=== PATIENT | male | born 1980 | race Caucasian/White ===

== ENCOUNTER 2022-06-09 05:08 | Inpatient (IN) ==
[2022-06-09] MEDS ORDERED: COMPAZINE IVP ONE (05:17)
[2022-06-09] MEDS ORDERED: SODIUM CHLORIDE 1,000 ML IV STA (05:17)
[2022-06-09] MEDS ORDERED: ZOFRAN 4 MG/2 ML IVP ONE (05:17)
[2022-06-09] MEDS ORDERED: DILAUDID 1 MG/ML SYRINGE IVP STA (05:17)
[2022-06-09] MEDS ORDERED: TORADOL IVP STA (05:17)
[2022-06-09 05:33] LABS: BASOPHILS # (AUTO) 0.1 K/uL (0-0.2); BASOPHILS % (AUTO) 0.6 % (0.0-3.0); EOSINOPHILS # (AUTO) 0.2 K/ul (0.0-0.7); EOSINOPHILS % (AUTO) 1.1 % (0.0-7.0); HEMATOCRIT 50.1 % (42.0-52.0); IMMATURE GRANULOCYTE # (AUTO) 0.1 (0.0-1.0); IMMATURE GRANULOCYTE % (AUTO) 0.6 % (0.0-5.0); LYMPHOCYTES # (AUTO) 3.4 K/uL (0.60-3.4); MEAN CORPUSCULAR HEMOGLOBIN 30.2 pg (27.0-31.0); MEAN CORPUSCULAR HGB CONC 33.9 (31.8-35.4); MONOCYTES # (AUTO) 1.6 K/uL (0.4-2.0); MONOCYTES % (AUTO) 8.2 (0-10); NEUTROPHILS # (AUTO) 14.3 K/ul (2.0-6.9); NEUTROPHILS % (AUTO) 72.5 % (42.2-75.2); PLATELET COUNT 357 10^3/uL (140-440); RDW COEFFICIENT OF VARIATION 13.3 % (11.6-14.8); RED BLOOD COUNT 5.63 10^6/ul (4.70-6.10); WHITE BLOOD COUNT 19.76 K/ul (4.2-10.2)
--- NOTE | 2022-06-09 05:40 | ED.PDOC ---
General ED Provider: Dr. JENNIFER VERDUGO Chief Complaint: Nausea/Vomiting Stated Complaint: Patient is a 41 year old male who comes to the ER with acute nausea and vomiting with abdominal pain that started last night. States he has vomited 5-6 times today and cannot keep any fluids down. Time Seen by Provider: 06/09/22 05:17 Mode of Arrival: Walk-In Information Source: Patient Nursing and Triage Documentation Reviewed and Agree: Yes Does patient meet sepsis criteria?: No System Inflammatory Response Syndrome: Not Applicable Sepsis Protocol: For patient's 13 years and over: Temp is 96.8 and below OR 101 and greater Pulse >90 BPM Resp >20/minute Acutely Altered Mental Status Are patient's symptoms suggestive of a new infection, such as: -Pneumonia -Skin, Soft Tissue -Endocarditis -UTI -Bone, Joint Infection -Implantable Device -Acute Abdominal Infection -Wound Infection -Meningitis -Blood Stream Catheter Infection -Unknown GI Complaint Exam Abdominal Pain Complaint/Exam Onset: Gradual Duration: 1 day Symptoms Are: Still present Timing: Constant Initial Severity: Moderate Current Severity: Severe Location of Pain: Diffuse Character: Reports Dull and Aching Aggravating: Reports Food Associated Signs and Symptoms: Reports Nausea and Vomiting Related History: Denies Similar episode Related Surgical History: Denies Cholecystectomy or Appendectomy Abdominal Findings: Present McBurney's Point tender and Other (+ guarding ); Absent Rebound tenderness or CVA Tenderness Male Body Picture: 1. tenderness when palpating Differential Diagnoses: Appendicitis, Bowel Obstruction, Pancreatitis, Renal Colic, Ureteral Stone and UTI Review of Systems Review Of Systems Constitutional: Reports Diaphoresis and Sweats Eyes: Reports No symptoms Ears, Nose, Mouth, Throat: Reports No symptoms Respiratory: Reports No symptoms GI: Reports Abdomen distended, Nausea and Vomiting : Reports No symptoms Musculoskeletal: Reports No symptoms Skin: Reports No symptoms Neurological: Reports Anxiety Endocrine: Reports No symptoms All Other Systems: Reviewed and Negative FOR[facility]LY [facility] Medical History (Updated 06/09/22 @ 07:09 by JENNIFER VERDUGO MD) Anxiety Depression HTN (hypertension) Hyperlipemia PTSD (post-traumatic stress disorder) Family History (Updated 06/09/22 @ 07:10 by JENNIFER VERDUGO MD) Other No pertinent family history Social History (Updated 06/09/22 @ 07:16 by JENNIFER VERDUGO MD) Smoking and tobacco status: Never smoker Details: occasional ETOH Surgical History (Updated 06/09/22 @ 07:15 by JENNIFER VERDUGO MD) H/O shoulder surgery Physical Exam Physical Exam Appearance: Reports Ill-appearing Ill-appearing: Moderate Pain Distress: Severe Eyes: Reports Conjunctiva clear ENT: Reports Nose normal and Oropharynx normal Neck: Supple Respiratory: Reports Airway patent, Breath sounds clear and Breath sounds equal Cardiovascular: Reports RRR, Pulses normal and No rub GI/: Reports Soft and Tender Musculoskeletal: Reports Normal strength and ROM intact Skin: Reports Warm and Dry Neurological: Reports Alert and Oriented Psychiatric: Reports Anxious Interpretation Radiology Interpretation Radiology Interpretation By: Radiologist Radiology Results: Positive (Findings suggestive of gastroenteritis. No evidence of nephrolithiasis or urolithiasis. Normal appendix. No free fluid.) Exam Interpreted: CT Scan Re-Evaluation Re-Evaluation Time of Re-Evaluation: 07:05 Status: Improved Vital Signs Stable: Yes Pain Level: 1 Appearance: NAD Critical Care Note Critical Care Note Total Critical Care Time (mins): 0 Course Course Hematology/Chemistry: 06/09/22 05:30 06/09/22 05:30 Orders, Labs, Meds: Lab Review 06/09/22 06/09/22 06/09/22 05:30 05:30 05:30 WBC 19.76 H RBC 5.63 Hgb 17.0 Hct 50.1 MCV 89.0 MCH 30.2 MCHC 33.9 RDW Coeff of Meli 13.3 Plt Count 357 Immature Gran % (Auto) 0.6 Neut % (Auto) 72.5 Lymph % (Auto) 17.0 [place] % (Auto) 8.2 Eos % (Auto) 1.1 Baso % (Auto) 0.6 Neut # (Auto) 14.3 H Lymph # (Auto) 3.4 [place] # (Auto) 1.6 Eos # (Auto) 0.2 Baso # (Auto) 0.1 Immature Gran # (Auto) 0.1 Sodium 134.1 L Potassium 5.35 H Chloride 94.3 L Carbon Dioxide 27.6 Anion Gap 17.55 BUN 14.8 Creatinine 1.42 H Estimated GFR (MDRD) 55.00 BUN/Creatinine Ratio 10.42 Glucose 122.0 H Lactic Acid 2.85 H Calcium 9.18 Total Bilirubin 1.29 AST 75.2 H ALT 53.9 H Alkaline Phosphatase 91.6 Total Protein 7.80 Albumin 4.56 Globulin 3.24 Albumin/Globulin Ratio 1.40 Amylase 177.1 H Lipase 1193.2 H Orders Category Date Time Status ADMIT PATIENT [facility]PAT[facility]) ADMISSION 06/09/22 06:58 Active ACTIVITY .Up ad Marianela CARE 06/09/22 07:00 Active GIVE HS SNACK 2100 CARE 06/09/22 07:00 Active INTAKE & OUTPUT Q8HR CARE 06/09/22 06:59 Active NPO REMINDER: IMAGING ONCE CARE 06/09/22 07:04 Active NPO REMINDER: LAB TEST ONCE CARE 06/09/22 07:07 Active TELEMETRY MONITORING TELE CARE 06/09/22 06:59 Active VITAL SIGNS Q4HR CARE 06/09/22 06:59 Active CLEAR LIQUID DIET DIETARY 06/09/22 Lunch Ordered HS SNACK DIETARY 06/09/22 Dinner Ordered AMYLASE Stat LAB 06/09/22 05:30 Completed CBC W/ AUTO DIFF DAILY@0600 LAB 06/10/22 06:00 Ordered CBC W/ AUTO DIFF DAILY@0600 LAB 06/11/22 06:00 Ordered CBC W/ AUTO DIFF Stat LAB 06/09/22 05:30 Completed COMPREHENSIVE METABOLIC PANEL DAILY@0600 LAB 06/10/22 06:00 Ordered COMPREHENSIVE METABOLIC PANEL DAILY@0600 LAB 06/11/22 06:00 Ordered COMPREHENSIVE METABOLIC PANEL Stat LAB 06/09/22 05:30 Completed LACTIC ACID Stat LAB 06/09/22 05:30 Completed LIPASE DAILY@0600 LAB 06/10/22 06:00 Ordered LIPASE DAILY@0600 LAB 06/11/22 06:00 Ordered LIPASE Stat LAB 06/09/22 05:30 Completed LIPID PANEL Stat LAB 06/09/22 07:06 Ordered SARS COV-2 RNA RAPID BETITO Stat LAB 06/09/22 06:58 Received URINALYSIS C & S IF INDICATED Stat LAB 06/09/22 05:17 Uncollected Enoxaparin Sodium [Lovenox] MEDS 06/09/22 09:00 Ordered 40 mg SUBCUT DAILY Hydromorphone HCl [Dilaudid 1 mg/ml Syringe] MEDS 06/09/22 05:17 Discontinued 1 mg IVP ONCE STA Hydromorphone HCl [Dilaudid 1 mg/ml Syringe] MEDS 06/09/22 06:58 Ordered 1 mg IVP Q4HR PRN Ketorolac Tromethamine [Toradol] MEDS 06/09/22 05:17 Discontinued 30 mg IVP ONCE STA Lisinopril [Zestril] MEDS 06/09/22 21:00 Ordered 10 mg PO BEDTIME Ondansetron HCl/Pf [Zofran 4 mg/2 ml] MEDS 06/09/22 05:17 Discontinued 4 mg IVP ONCE ONE Ondansetron HCl/Pf [Zofran 4 mg/2 ml] MEDS 06/09/22 06:58 Ordered 4 mg IVP Q6H PRN Prochlorperazine Edisylate [Compazine] MEDS 06/09/22 05:17 Discontinued 10 mg IVP ONCE ONE Sodium Chloride 0.9% [Sodium Chloride] 1,000 ml MEDS 06/09/22 07:00 Ordered IV 150 mls/hr Sodium Chloride 0.9% [Sodium Chloride] 1,000 ml MEDS 06/09/22 05:17 Discontinued IV BOLUS RESUSCITATION STATUS Routine OTHERS 06/09/22 06:[address] ABD/PEL WO RENAL STONE PROT Stat RADS 06/09/22 05:17 Completed GALLBLADDER ULTRASOUND [U/S ABDOMEN RT UPPER QUAD] Stat RADS 06/09/22 07:03 Ordered Medications Generic Name Dose Route Start Last Admin Trade Name Freq PRN Reason Stop Dose Admin Enoxaparin Sodium 40 mg 06/09/22 09:00 Enoxaparin Sodium 40 Mg/0.4 Ml Syr SUBCUT DAILY RAH Hydromorphone HCl 1 mg 06/09/22 06:58 Hydromorphone Hcl 1 Mg/Ml Syringe IVP Q4HR PRN Severe Pain Sodium Chloride 1,000 mls @ 150 mls/hr 06/09/22 07:00 Sodium Chloride IV .Q6H40M RAH Lisinopril 10 mg 06/09/22 21:00 Lisinopril 10 Mg Tablet PO BEDTIME RAH Ondansetron HCl 4 mg 06/09/22 06:58 Ondansetron Hcl/Pf 4 Mg/2 Ml Sdv IVP Q6H PRN Nausea / Vomiting Discontinued Medications Generic Name Dose Route Start Last Admin Trade Name Freq PRN Reason Stop Dose Admin Hydromorphone HCl 1 mg 06/09/22 05:17 06/09/22 05:35 Hydromorphone Hcl 1 Mg/Ml Syringe IVP 06/09/22 05:18 1 mg ONCE STA Administration Sodium Chloride 1,000 mls @ 1,000 mls/hr 06/09/22 05:17 06/09/22 05:36 Sodium Chloride IV 06/09/22 06:16 1,000 mls/hr BOLUS STA Administration Ketorolac Tromethamine 30 mg 06/09/22 05:17 06/09/22 05:35 Ketorolac Tromethamine 30 Mg/Ml Vial IVP 06/09/22 05:18 30 mg ONCE STA Administration Ondansetron HCl 4 mg 06/09/22 05:17 06/09/22 05:35 Ondansetron Hcl/Pf 4 Mg/2 Ml Sdv IVP 06/09/22 05:18 4 mg ONCE ONE Administration Prochlorperazine Edisylate 10 mg 06/09/22 05:17 06/09/22 05:49 Prochlorperazine Edisylate 10 Mg/2 Ml Sdv IVP 06/09/22 05:18 10 mg ONCE ONE Administration Vital Signs: Temp Pulse Resp BP Pulse Ox 06/09/22 05:09 98.0 F 90 90 H 127/88 99 Discharge Plan Discharge Patient Disposition: ADMITTED INPATIENT Discharge Problem: Gastroenteritis, Nausea, Vomiting, Abdominal pain Acute pancreatitis Qualifiers: Pancreatitis type: idiopathic Acute pancreatitis complication: no infection or necrosis Qualified Code(s): K85.00 - Idiopathic acute pancreatitis without necrosis or infection Did you review [place] BOTANY PROFESSOR?: Not Applicable ED Provider: JENNIFER VERDUGO Condition: Stable Physician Progress Note: []
[2022-06-09 05:45] LABS: ALANINE AMINOTRANSFERASE 53.9 U/L (0-50); ALBUMIN 4.56 g/dL (3.5-5.0); ALKALINE PHOSPHATASE 91.6 U/L (38-126); AMYLASE 177.1 U/L (30-110); ASPARTATE AMINO TRANSFERASE 75.2 U/L (17-59); BILIRUBIN,TOTAL 1.29 mg/dL (0.2-1.3); BLOOD UREA NITROGEN 14.8 mg/dL (9-20); CALCIUM 9.18 mg/dL (8.4-10.2); CARBON DIOXIDE 27.6 mmol/L (22-30.0); CHLORIDE 94.3 mmol/L (98-107); CREATININE 1.42 mg/dL (0.60-1.10); LIPASE 1193.2 U/L (23-300); POTASSIUM 5.35 mmol/L (3.5-5.1); SODIUM 134.1 mmol/L (134.5-145); TOTAL PROTEIN 7.8 g/dL (6.3-8.2)
--- NOTE | 2022-06-09 06:28 | CT ---
EXAM: CT scan abdomen pelvis without contrast HISTORY: Low back pain vomiting COMPARISON: None. FINDINGS: Helically acquired axial images obtained through the abdomen pelvis without contrast utili zing 2.5-mm collimation. Sagittal and coronal reconstructions were imaged and reviewed.. The visual ized lung bases are clear. The gallbladder is fluid filled without cholelithiasis. The liver, pancr eas, spleen and adrenal glands have normal unenhanced CT appearance. The kidneys are morphologically normal.. The abdominal aorta is not normal in course and caliber. There is a normal appendix. The prostate gland normal in size. The bladder is unremarkable.. There are prominent thickened small b owel loops within the left abdomen suggesting gastroenteritis.. There is a fat-containing umbilical hernia. There is no free fluid. Bone windows reveals no lytic or blastic lesions. IMPRESSION: Findings suggestive of gastroenteritis. No evidence of nephrolithiasis or urolithiasis. Normal appendix. No free fluid. All CT scans are performed using dose optimization techniques as appropriate to the performed exam an d include at least one of the following: Automated exposure control, adjustment of the mA and/or kV according t o size, and the use of iterative reconstruction technique.
[2022-06-09] MEDS: SODIUM CHLORIDE 1,000 ML IV SCH ×3 (07:26→23:12)
[2022-06-09 07:33] LABS: CHOLESTEROL 220.4 mg/dL (0-200); HDL CHOLESTEROL 12.5 mg/dL (35-60); TRIGLYCERIDES 183.8 mg/dL (0-150)
--- NOTE | 2022-06-09 08:03 | US ---
EXAM: ULTRASOUND OF THE RIGHT UPPER QUADRANT (LIMITED ABDOMEN) HISTORY: Pancreatitis. Abdominal pain, nausea, and vomiting for 1 day. TECHNIQUE: Sonography of the right upper quadrant was performed. Color Doppler imaging of the portal vein was performed. Images were obtained and stored in a permanent archive. COMPARISON: CT abdomen pelvis 06/09/2022. FINDINGS: Pancreas: Obscured by bowel gas shadowing. Liver: Normal echogenicity. Normal surface contour. No lesions. - Main portal vein: Normal hepatopetal flow. Biliary: No cholelithiasis. No wall thickening. Negative sonographic Lake's sign. -Common bile duct measures 4 mm. Right Kidney: No mass, calculus, or hydronephrosis. Aorta: Visualized portion without aneurysmal dilatation. IVC: Patent on color doppler. No abnormality on limited ureña scale image. Other: No ascites. IMPRESSION: Pancreas obscured by bowel gas shadowing, could not be evaluated. No acute finding in the right upper quadrant.
--- NOTE | 2022-06-09 08:23 | PCM.PROG ---
Date Seen by Provider: 06/09/22 Time Seen by Provider: 08:19 Subjective: Pt presented with epigastric abdominal pain and found to have pancreatitis. Admitted for pain control and to assure improvement in his symptoms. Currently still with pain as he was just admitted a few hours ago. Objective: Vitals: T=98.0 F, P=90, R=22, EX=873/88, SPO2=99 HEENT: PERRL Neck: supple Lungs: clear CVS: RRR Abdomen: epigastric TTP Neurological: intact Lab/Tests/Diagnostic Imaging: AST 75, ALT 54, Lipase 1193, Trig 183, Chol 220, covid neg, US shows no acute findings with the pancreas obscured (1) Acute pancreatitis: Status: Acute Code(s): K85.90 - Acute pancreatitis without necrosis or infection, unspecified SNOMED Code(s): 420442511 (2) Vomiting: Status: Acute Code(s): R11.10 - Vomiting, unspecified SNOMED Code(s): 935623794 Plan: 1. Pancreatitis: Continue pain medication and keep diet as clears today. If improving can advance diet tomorrow. 2. N/V: Fluids and antiemetics as needed
[2022-06-09 08:53] VITALS: BMI 42.9
[2022-06-09] MEDS: DILAUDID 1 MG/ML SYRINGE IVP PRN ×4 (09:03→20:35)
[2022-06-09 09:36] LABS: BILIRUBIN,URINE 1+ (NEGATIVE); CLARITY,URINE Clear (CLEAR); COLOR,URINE Yellow (YELLOW); GLUCOSE, URINE (UA) Negative (NEGATIVE); KETONES,URINE 1+ (NEGATIVE); LEUKOCYTE ESTERASE ,URINE Negative (NEGATIVE); NITRITE,URINE Positive (NEGATIVE); PROTEIN,URINE 1+ (NEGATIVE); URINE, BLOOD Negative (NEGATIVE)
[2022-06-09 09:39] LABS: SQUAMOUS EPITHELIAL CELL,UR NOT PRESENT (0-5)
[2022-06-09 09:47] LABS: BACTERIA,URINE 1+ (NOT PRESENT); MUCUS,URINE 2+ (NOT PRESENT); RENAL EPITHELIAL CELLS,URINE 0-2 (NOT PRESENT); URINE RBC, MICROSCOPIC 20-30 (0-2)
[2022-06-09] MEDS: PHENERGAN 25 MG/ML VIAL 12.5 MG in SODIUM CHLORIDE 50 ML IV PRN ×2 (11:12→17:11)
[2022-06-09] MEDS: ZOFRAN 4 MG/2 ML IVP PRN ×2 (13:25→15:08)
[2022-06-09] MEDS: LOVENOX SUBCUT SCH (15:56)
[2022-06-09] MEDS ORDERED: CATAPRES PO PRN (16:24)
[2022-06-09] MEDS ORDERED: INDERAL PO PRN (16:24)
[2022-06-09] MEDS ORDERED: PHENERGAN 25 MG/ML VIAL ONE (17:00)
[2022-06-09] MEDS: ZANAFLEX PO SCH (20:30)
[2022-06-09] MEDS: LIPITOR PO SCH (20:30)
[2022-06-09] MEDS: ZESTRIL PO SCH (20:30)
[2022-06-10] MEDS: DILAUDID 1 MG/ML SYRINGE IVP PRN ×6 (02:50→22:57)
[2022-06-10 05:51] LABS: BASOPHILS # (AUTO) 0.1 K/uL (0-0.2); BASOPHILS % (AUTO) 0.4 % (0.0-3.0); EOSINOPHILS # (AUTO) 0.2 K/ul (0.0-0.7); HEMATOCRIT 48.1 % (42.0-52.0); IMMATURE GRANULOCYTE # (AUTO) 0.1 (0.0-1.0); IMMATURE GRANULOCYTE % (AUTO) 0.4 % (0.0-5.0); LYMPHOCYTES # (AUTO) 2.4 K/uL (0.60-3.4); LYMPHOCYTES % (AUTO) 12.5 (10.0-50.0); MEAN CORPUSCULAR HGB CONC 33.3 (31.8-35.4); MEAN CORPUSCULAR VOLUME 90.2 fl (80.0-94.0); MONOCYTES % (AUTO) 10.7 (0-10); PLATELET COUNT 288 10^3/uL (140-440); RDW COEFFICIENT OF VARIATION 13.3 % (11.6-14.8); RED BLOOD COUNT 5.33 10^6/ul (4.70-6.10); WHITE BLOOD COUNT 18.74 K/ul (4.2-10.2)
[2022-06-10] MEDS: SODIUM CHLORIDE 1,000 ML IV SCH ×3 (05:59→20:21)
[2022-06-10 06:08] LABS: ALANINE AMINOTRANSFERASE 39.9 U/L (0-50); ALBUMIN 3.97 g/dL (3.5-5.0); ALKALINE PHOSPHATASE 66.3 U/L (38-126); ASPARTATE AMINO TRANSFERASE 54.5 U/L (17-59); BILIRUBIN,TOTAL 1.81 mg/dL (0.2-1.3); BLOOD UREA NITROGEN 11.1 mg/dL (9-20); CALCIUM 8.39 mg/dL (8.4-10.2); CARBON DIOXIDE 29.4 mmol/L (22-30.0); CHLORIDE 95.5 mmol/L (98-107); CREATININE 1.29 mg/dL (0.60-1.10); GLUCOSE 103.6 mg/dL (74-106); LIPASE 764.8 U/L (23-300); POTASSIUM 5.16 mmol/L (3.5-5.1); SODIUM 132.6 mmol/L (134.5-145); TOTAL PROTEIN 7.02 g/dL (6.3-8.2)
[2022-06-10] MEDS: LOVENOX SUBCUT SCH (08:26)
--- NOTE | 2022-06-10 09:01 | PCM.PROG ---
Date Seen by Provider: 06/10/22 Time Seen by Provider: 08:57 Subjective: "im still hurting"--still requiring pain meds--no new concerns by nursing staff Objective: Vitals: T=98.5 F, P=72, R=18, KB=839/91, SPO2=96 HEENT: [] Neck: [supple] Lungs: [clear] CVS: [rrr] Abdomen: [soft, bs] Extremities: [no edema] Neurological: [] Skin: [] Lab/Tests/Diagnostic Imaging: labs are reviewed---lipase is improved to the 700's range (1) Acute pancreatitis: Status: Acute Code(s): K85.90 - Acute pancreatitis without necrosis or infection, unspecified SNOMED Code(s): 940183520 (2) Vomiting: Status: Acute Code(s): R11.10 - Vomiting, unspecified SNOMED Code(s): 537948075 Assessment: he appears to be a little better--tolerating clear liquids without vomiting--- Plan: will try to advance his diet to low fat diet today and check labs in am--discussed with the patient and --since no clear etiology for the problem--i suggested seeing mud mixer operator as outpatient to discover etiology
[2022-06-10] MEDS ORDERED: PHENERGAN 25 MG/ML VIAL ONE ×2 (13:16→22:42)
[2022-06-10] MEDS: PHENERGAN 25 MG/ML VIAL 12.5 MG in SODIUM CHLORIDE 50 ML IV PRN ×2 (13:21→22:56)
[2022-06-10] MEDS: ZANAFLEX PO SCH (20:48)
[2022-06-10] MEDS: LIPITOR PO SCH (20:48)
[2022-06-10] MEDS: ZESTRIL PO SCH (20:48)
[2022-06-11] MEDS: ZOFRAN 4 MG/2 ML IVP PRN ×2 (03:36→09:09)
[2022-06-11] MEDS: SODIUM CHLORIDE 1,000 ML IV SCH ×3 (03:52→19:44)
[2022-06-11 05:01] LABS: BASOPHILS # (AUTO) 0.1 K/uL (0-0.2); BASOPHILS % (AUTO) 0.4 % (0.0-3.0); EOSINOPHILS # (AUTO) 0.1 K/ul (0.0-0.7); EOSINOPHILS % (AUTO) 0.6 % (0.0-7.0); HEMATOCRIT 43.9 % (42.0-52.0); HEMOGLOBIN 14.7 g/dl (14.0-18.0); IMMATURE GRANULOCYTE # (AUTO) 0.1 (0.0-1.0); IMMATURE GRANULOCYTE % (AUTO) 0.5 % (0.0-5.0); LYMPHOCYTES # (AUTO) 1.1 K/uL (0.60-3.4); LYMPHOCYTES % (AUTO) 6.3 (10.0-50.0); MEAN CORPUSCULAR HEMOGLOBIN 30.2 pg (27.0-31.0); MEAN CORPUSCULAR HGB CONC 33.5 (31.8-35.4); MEAN CORPUSCULAR VOLUME 90.3 fl (80.0-94.0); NEUTROPHILS # (AUTO) 13.7 K/ul (2.0-6.9); NEUTROPHILS % (AUTO) 80.2 % (42.2-75.2); PLATELET COUNT 235 10^3/uL (140-440); RDW COEFFICIENT OF VARIATION 13.4 % (11.6-14.8); RED BLOOD COUNT 4.86 10^6/ul (4.70-6.10); WHITE BLOOD COUNT 17.03 K/ul (4.2-10.2)
[2022-06-11 05:12] LABS: ALANINE AMINOTRANSFERASE 31.5 U/L (0-50); ALBUMIN 3.65 g/dL (3.5-5.0); ALKALINE PHOSPHATASE 56.7 U/L (38-126); ASPARTATE AMINO TRANSFERASE 40.6 U/L (17-59); BILIRUBIN,TOTAL 1.04 mg/dL (0.2-1.3); BLOOD UREA NITROGEN 13.4 mg/dL (9-20); CALCIUM 8.19 mg/dL (8.4-10.2); CARBON DIOXIDE 24.7 mmol/L (22-30.0); CHLORIDE 98.5 mmol/L (98-107); CREATININE 2.69 mg/dL (0.60-1.10); GLUCOSE 106.7 mg/dL (74-106); LIPASE 566.8 U/L (23-300); POTASSIUM 4.85 mmol/L (3.5-5.1); SODIUM 132.2 mmol/L (134.5-145); TOTAL PROTEIN 6.69 g/dL (6.3-8.2)
[2022-06-11] MEDS ORDERED: MIRALAX PO ONE (08:30)
[2022-06-11] MEDS: LOVENOX SUBCUT SCH (08:39)
[2022-06-11] MEDS: DILAUDID 1 MG/ML SYRINGE IVP PRN ×3 (08:48→20:45)
[2022-06-11] MEDS ORDERED: PHENERGAN 25 MG/ML VIAL ONE ×2 (11:29→19:57)
[2022-06-11] MEDS: PHENERGAN 25 MG/ML VIAL 12.5 MG in SODIUM CHLORIDE 50 ML IV PRN (11:32)
[2022-06-11] MEDS ORDERED: PHENERGAN 25 MG/ML VIAL 12.5 MG in SODIUM CHLORIDE 50 ML IV PRN (11:45)
[2022-06-11] MEDS ORDERED: LEVAQUIN 500 MG/100 ML D5W 500 MG/100 ML BAG IV SCH (12:00)
--- NOTE | 2022-06-11 12:26 | PCM.PROG ---
Date Seen by Provider: 06/11/22 Time Seen by Provider: 12:21 Subjective: mild to mod abdominal pain continues, especially after advancing diet last night, decreased stooling, no fever Objective: Vitals: T=99.5 F, P=81, R=16, DX=213/64, SPO2=96 HEENT: []conjunctiva clear Neck: []supple Lungs: [] no respiratory distress CVS: []RRR Abdomen: []soft tender, no rebound Extremities: []enriqueta Neurological: []alert and oriented Skin: []warm and dry Lab/Tests/Diagnostic Imaging: [] stranner 2.6, lipase 566, wbc 17 (1) Acute pancreatitis: Status: Acute Code(s): K85.90 - Acute pancreatitis without necrosis or infection, unspecified SNOMED Code(s): 445113313 (2) Vomiting: Status: Acute Code(s): R11.10 - Vomiting, unspecified SNOMED Code(s): 925324722 Plan: give miralax, continue iv ns 150cc/hr, obtain repeat ct abd to evaluate potential enteritis, am labs, start levaquin, attempt to decrease interval phenergan and dilaudid, attempt to d/c home tomorrow care to Dr Treviño at 19:00
--- NOTE | 2022-06-11 13:17 | CT ---
EXAM: CT ABDOMEN AND PELVIS WITHOUT CONTRAST HISTORY: Abdominal pain. Follow-up. TECHNIQUE: CT acquisition of the abdomen and pelvis from the lower thorax through the pelvis without IV contrast administration. IV contrast: None. Oral contrast: None. Low dose protocol: No. CT Dose Reduction Techniques Performed: Yes. COMPARISON: CT abdomen pelvis and right upper quadrant ultrasound 06/09/2022 FINDINGS: Liver: No mass. Normal morphology. Biliary: No biliary ductal dilation. Gallbladder is normal. Pancreas: Mild peripancreatic inflammatory changes. No duct dilation. No significant parenchymal ed patricia or enlargement. Spleen: No mass. No splenomegaly. Adrenals: No mass. Kidneys/Ureters: No mass, calculus, or hydronephrosis. GI Tract: No bowel dilation. No bowel wall thickening. Normal appendix. No diverticulosis. Peritoneal Cavity: No ascites. Retroperitoneum: No fluid collection. Lymph Nodes: No lymphadenopathy. Vasculature: No aortic calcifications. No aortic or iliac aneurysm within limitations of noncontrast examination. Pelvis: Urinary bladder is normal. No free fluid. Bones/Soft Tissues: No acute fracture. Left L5 pars defect. Visualized soft tissues are within brian l limits. Lower Thorax: Within normal limits. IMPRESSION: Mild peripancreatic inflammatory changes concerning for acute interstitial edematous pancreatitis. C orrelation with amylase and lipase levels is recommended. All CT scans are performed using dose optimization techniques as appropriate to the performed exam an d include at least one of the following: Automated exposure control, adjustment of the mA and/or kV according t o size, and the use of iterative reconstruction technique.
[2022-06-11] MEDS ORDERED: MILK OF MAGNESIA PO STA (15:03)
[2022-06-11] MEDS ORDERED: MILK OF MAGNESIA PO PRN (15:03)
[2022-06-11] MEDS: LIPITOR PO SCH (20:14)
[2022-06-11] MEDS: ZANAFLEX PO SCH (20:14)
[2022-06-11] MEDS: ZESTRIL PO SCH (20:15)
[2022-06-12] MEDS: SODIUM CHLORIDE 1,000 ML IV SCH ×2 (01:20→09:00)
[2022-06-12 05:24] LABS: BASOPHILS # (AUTO) 0.1 K/uL (0-0.2); BASOPHILS % (AUTO) 0.4 % (0.0-3.0); EOSINOPHILS # (AUTO) 0.2 K/ul (0.0-0.7); EOSINOPHILS % (AUTO) 1.7 % (0.0-7.0); HEMATOCRIT 42.1 % (42.0-52.0); HEMOGLOBIN 14.1 g/dl (14.0-18.0); IMMATURE GRANULOCYTE # (AUTO) 0.1 (0.0-1.0); IMMATURE GRANULOCYTE % (AUTO) 0.5 % (0.0-5.0); LYMPHOCYTES # (AUTO) 2.2 K/uL (0.60-3.4); LYMPHOCYTES % (AUTO) 18.5 (10.0-50.0); MEAN CORPUSCULAR HEMOGLOBIN 30.1 pg (27.0-31.0); MEAN CORPUSCULAR HGB CONC 33.5 (31.8-35.4); MEAN CORPUSCULAR VOLUME 89.8 fl (80.0-94.0); MONOCYTES # (AUTO) 1.4 K/uL (0.4-2.0); MONOCYTES % (AUTO) 11.9 (0-10); NEUTROPHILS # (AUTO) 8.1 K/ul (2.0-6.9); PLATELET COUNT 244 10^3/uL (140-440); RDW COEFFICIENT OF VARIATION 13.3 % (11.6-14.8); RED BLOOD COUNT 4.69 10^6/ul (4.70-6.10); WHITE BLOOD COUNT 12.06 K/ul (4.2-10.2)
[2022-06-12 05:37] LABS: ALANINE AMINOTRANSFERASE 26.6 U/L (0-50); ALBUMIN 3.43 g/dL (3.5-5.0); ALKALINE PHOSPHATASE 51.1 U/L (38-126); ASPARTATE AMINO TRANSFERASE 40.4 U/L (17-59); BILIRUBIN,TOTAL 1.04 mg/dL (0.2-1.3); BLOOD UREA NITROGEN 13.3 mg/dL (9-20); CALCIUM 8.62 mg/dL (8.4-10.2); CARBON DIOXIDE 32.9 mmol/L (22-30.0); CHLORIDE 97.2 mmol/L (98-107); CREATININE 1.42 mg/dL (0.60-1.10); GLUCOSE 94.7 mg/dL (74-106); LIPASE 281.6 U/L (23-300); POTASSIUM 4.75 mmol/L (3.5-5.1); SODIUM 135.8 mmol/L (134.5-145); TOTAL PROTEIN 6.51 g/dL (6.3-8.2)
[2022-06-12 07:21] VITALS: BP 153/89; TEMP 97.9
[2022-06-12] MEDS: LOVENOX SUBCUT SCH (09:00)
--- NOTE | 2022-06-12 09:15 | PCM.PROG ---
Date Seen by Provider: 06/12/22 Time Seen by Provider: 07:45 Subjective: Patient denies abdominal pain or nausea. He is tolerating diet. Last bowel movement was 4 days ago. He is passing flatus. Objective: Vitals: T=97.9 F, P=78, R=18, IA=272/89, SPO2=96 Patient is alert and appears to be comfortable. HEENT: [] Neck: [] Lungs: [] Chest clear. Breath tones equal. CVS: [] RRR Abdomen: [] Abdomen is flat, soft and nontender. No palpable mass. Extremities: [] No edema. Neurological: [] No deficits. Skin: [] Lab/Tests/Diagnostic Imaging: [] (1) Acute pancreatitis: Status: Acute Code(s): K85.90 - Acute pancreatitis without necrosis or infection, unspecified SNOMED Code(s): 134884463 Assessment: Etiology of pancreatitis remains unclear; patient denies alcohol use. No gallstones or sludge on gallbladder ultrasound. No other obvious cause of pancreatitis. (2) Vomiting: Status: Acute Code(s): R11.10 - Vomiting, unspecified SNOMED Code(s): 326240693 Assessment: Vomiting has resolved and patient is tolerating diet. Plan: Patient to be discharged to home today.
--- NOTE | 2022-06-12 09:18 | PCM.DC ---
Final Diagnosis: acute pancreatitis of uncertain etiology Physical Exam Appearance: Well-appearing, No pain distress and Well-nourished Ill-appearing: None Pain Distress: None Eyes: ELOY and EOMI ENT: Nose normal and Oropharynx normal Neck: Supple Respiratory: Airway patent, Breath sounds clear and Breath sounds equal Cardiovascular: RRR, No rub and No murmur GI/: Soft, Nontender, No masses and Bowel sounds normal Musculoskeletal: Normal strength, ROM intact and No edema Skin: Warm, Dry and Normal color Neurological: Sensation intact, Motor intact, Cranial nerves intact, Alert and Oriented Psychiatric: Affect appropriate and Mood appropriate (1) Acute pancreatitis: Status: Acute Code(s): K85.90 - Acute pancreatitis without necrosis or infection, unspecified SNOMED Code(s): 427021166 Qualifiers: Acute pancreatitis complication: no infection or necrosis Pancreatitis type: idiopathic Qualified Code(s): K85.00 - Idiopathic acute pancreatitis without necrosis or infection (2) Vomiting: Status: Acute Code(s): R11.10 - Vomiting, unspecified SNOMED Code(s): 722952635 Reason for Hospitalization: Patient admitted with acute pancreatitis. He was made NPO and received IV fluid hydration. His pancreatitis eventually resolved and patient was started on a low fat diet. He tolerated this well. CT scan of the abd/pelvis and gallbladder ultrasound were remarkable only for findings of acute gastroenteritis and acute pancreatitis. Prognosis/Condition at Discharge: Condition at discharge was good. Medications at Discharge: Patient was discharged on the same home medications that he was taking at the time of discharge. Lab/Diagnostics: Lipase was normalizing at the time of discharge. Creatinine was noted to be elevated but was trending downward at the time of discharge. Education Provided to Patient and Family: acute pancreatitis Follow-ups: Follow up with your primary care provider within 7-10 days. Discharge Disposition: Home Hospital Course: Patient was admitted with acute pancreatitis. Etiology of the pancreatitis could not be established. He was kept NPO until his abdominal pain and nausea had resolved. Diet was then started and advanced to a low fat diet. His IV fluids were discontinued when his oral intake was adequate. He received antiemetics and narcotics as needed. Plan: Patient was discharged to home. He is to follow up with his primary care provider within 7-10 days. Maintain a low fat diet.
== END 2022-06-12 09:58 | disposition home or self-care (01) | DRG 440 ==
LOC: ED 05:08 → MEDSURG A 07:41
PROVIDERS: ADMIT Internal Medicine Geriatric Medicine; ATTEND Surgery
DX: Z51.81 Encounter for therapeutic drug level monitoring; K85.90 Acute pancreatitis without necrosis or infection, unspecified; K85.00 Idiopathic acute pancreatitis without necrosis or infection; R11.10 Vomiting, unspecified; Z20.822 Contact with and (suspected) exposure to COVID-19; E78.5 Hyperlipidemia, unspecified; K52.9 Noninfective gastroenteritis and colitis, unspecified; I10 Essential (primary) hypertension; Z79.899 Other long term (current) drug therapy

== ENCOUNTER 2023-01-30 15:38 | Observation (INO) ==
[2023-01-30] MEDS ORDERED: ZOFRAN 4 MG/2 ML IVP STA (16:08)
[2023-01-30] MEDS ORDERED: MORPHINE 4 MG/ML SYRINGE IVP STA (16:08)
--- NOTE | 2023-01-30 16:08 | ED.PDOC ---
General ED Provider: Dr. EZE NAIDU MD Chief Complaint: Nausea/Vomiting Stated Complaint: PATIENT WITH A 2 WEEK HISTORY OF URGENCY,DYSURIA, HESITANCY EVALUATED IN EMERGENCY ON 01/26/23 FOR ACUTE URINARY RETENTION. NOW PRESENTS TO EMERGENCY WITH COMPLAINTS OF SUPRAPUBIC ABDOMINAL PAIN, AND EMESIS X 10 TODAY. DENIES FEVER, CHILLS FLANK PAIN OR DIARRHEA. TREATED WITH ANTIBIOTIC X 4 DAYS AND MEDROL DOSEPAK OR 4 DAYS. Time Seen by Provider: 01/30/23 16:00 Information Source: Patient Exam Limitations: Clinical condition Primary Care Provider: LEE NOEL APRN Seen Within Last 72 Hours for Same Complaint By: ED Nursing and Triage Documentation Reviewed and Agree: Yes Does patient meet sepsis criteria?: No System Inflammatory Response Syndrome: Not Applicable Sepsis Protocol: For patient's 13 years and over: Temp is 96.8 and below OR 101 and greater Pulse >90 BPM Resp >20/minute Acutely Altered Mental Status Are patient's symptoms suggestive of a new infection, such as: -Pneumonia -Skin, Soft Tissue -Endocarditis -UTI -Bone, Joint Infection -Implantable Device -Acute Abdominal Infection -Wound Infection -Meningitis -Blood Stream Catheter Infection -Unknown Complaint Exam Complaint/Exam Onset/Duration: 2 WEEKS DIFFICULTY VOIDING Symptoms Are: Still present Timing: Constant Episodes of Voiding Over Last 12 Hours: 3 Location of Pain: Reports Suprapubic Character: Reports Sharp Aggravating: Reports Voiding Associated Signs and Symptoms: Reports Dysuria; Denies Diaphoresis, Back pain, Fever, Hematuria, Constipation, Penile swelling or Penile discharge Last Voided: PRIOR TO ARRIVAL Testicular Torsion Risk Factors: Reports None Surgical Obstruction Risk Factors: Reports None Related Surgical History: Reports None Abdominal Findings: Present None; Absent Pulsatile mass or CVA Tenderness Rectal Exam: Present Normal Findings Prostate Exam: Nontender Review of Systems Review Of Systems Constitutional: Reports No symptoms All Other Systems: Reviewed and Negative FORMERLY [facility] Medical History Family History Other No pertinent family history Social History Smoking and tobacco status: Never smoker Details: occasional ETOH Surgical History Physical Exam Physical Exam Appearance: Reports Well-appearing Ill-appearing: Mild Pain Distress: Moderate Eyes: Reports ELOY and Conjunctiva clear; Denies Conjunctiva inflammed ENT: Reports Ears normal, Nose normal and Oropharynx normal; Denies TMs Occluded Neck: Supple Respiratory: Reports Airway patent, Breath sounds clear and Breath sounds equal; Denies Breath sounds diminished Cardiovascular: Reports RRR, Pulses normal, No rub and No murmur GI/: Reports Bowel sounds normal and Tender (SUPRAPUBIC TENDERNESS MODERATE); Denies Hepatomegaly Musculoskeletal: Denies ROM intact Skin: Reports Dry and Normal color Neurological: Reports Sensation intact, Motor intact and Cranial nerves intact Psychiatric: Reports Affect appropriate and Mood appropriate Re-Evaluation Re-Evaluation Time of Re-Evaluation: 18:30 Pain Level: PAIN SCALE IMPROVED 10/10 TO 4/10 Appearance: NAD Lungs: Clear Skin: Warm and Dry Neuro: Alert and Oriented X3 CV: RRR Physician Notification Case Discussed Physician Notified: CONSULTED HOSPITALIST SHANNON Time of Notification: 18:14 Comments: FOR OBSERVATION Critical Care Note Critical Care Note Total Critical Care Time (mins): 0 Course Course 01/30/23 16:20 01/30/23 16:20 Orders, Labs, Meds: Lab Review 01/30/23 01/30/23 01/30/23 16:20 17:18 17:20 WBC 31.71 H D RBC 5.94 Hgb 18.0 Hct 52.9 H MCV 89.1 MCH 30.3 MCHC 34.0 RDW Coeff of Meli 12.6 Plt Count 431 Immature Gran % (Auto) 0.8 Neut % (Auto) 79.1 H Lymph % (Auto) 9.9 L Davison % (Auto) 9.4 Eos % (Auto) 0.3 Baso % (Auto) 0.5 Neut # (Auto) 25.1 H Lymph # (Auto) 3.2 Davison # (Auto) 3.0 H Eos # (Auto) 0.1 Baso # (Auto) 0.2 Immature Gran # (Auto) 0.2 Sodium 132.7 L Potassium 4.02 Chloride 94.6 L Carbon Dioxide 21.2 L Anion Gap 20.92 BUN 22.1 H Creatinine 1.31 H Estimated GFR (MDRD) 60.00 BUN/Creatinine Ratio 16.87 Glucose 131.0 H Lactic Acid 1.96 Calcium 9.55 Total Bilirubin 2.06 H AST 54.9 ALT 56.9 H Alkaline Phosphatase 85.7 Total Protein 8.03 Albumin 4.75 Globulin 3.28 Albumin/Globulin Ratio 1.44 Lipase 1082.4 H Urine Color Dark Urine Clarity Clear Urine pH >=9.0 Ur Specific [place] 1.010 Urine Protein 2+ H Urine Glucose (UA) Negative Urine Ketones 2+ H Urine Blood Negative Urine Nitrite Negative Urine Bilirubin Negative Urine Urobilinogen 1.0 H Ur Leukocyte Esterase Negative Urine Microscopic RBC 0-2 Urine Microscopic WBC 0-2 Ur Squamous Epith Cells Not present Urine Mucus Trace Urine Opiates Screen Positive H Ur Oxycodone Screen Negative Urine Methadone Screen Negative Ur Propoxyphene Screen Negative Ur Barbiturates Screen Negative U Tricyclic Antidepress Negative Ur Phencyclidine Scrn Negative Ur Amphetamine Screen Negative U Methamphetamines Scrn Negative U Benzodiazepines Scrn Negative Urine Cocaine Screen Negative U Cannabinoids Screen Positive H Orders Category Date Time Status NPO REMINDER: IMAGING ONCE CARE 01/30/23 16:09 Completed IV [ED IV/MEDIPORT/POWERPORT] .ONCE EMERGENCY 01/30/23 16:10 Active BLOOD CULTURE (ED ONLY) Stat LAB 01/30/23 17:20 Received CBC W/ AUTO DIFF Stat LAB 01/30/23 16:20 Completed CMP [COMPREHENSIVE METABOLIC PANEL] Stat LAB 01/30/23 16:20 Completed DRUG SCREEN, URINE, RAPID Stat LAB 01/30/23 17:18 Completed LACTIC ACID Stat LAB 01/30/23 17:20 Completed LIPASE Routine LAB 01/30/23 16:20 Completed SARS COV-2 RNA RAPID BETITO Stat LAB 01/30/23 Ordered URINALYSIS C & S IF INDICATED Stat LAB 01/30/23 17:18 Completed 0.9 % Sodium Chloride [Saline Flush] MEDS 01/30/23 16:10 Active 1 syr IVF PRN PRN Hydromorphone HCl [Dilaudid 1 mg/ml Syringe] MEDS 01/30/23 17:44 Discontinued 1 mg IV ONCE ONE Levofloxacin/D5w [Levaquin 500 mg/100 ml D5w] MEDS 01/30/23 16:56 Discontinued 500 mg in 100 ml IV ONCE Morphine Sulfate [Morphine 4 mg/ml Syringe] MEDS 01/30/23 16:08 Discontinued 4 mg IVP ONCE STA Ondansetron HCl/Pf [Zofran 4 mg/2 ml] MEDS 01/30/23 16:08 Discontinued 4 mg IVP ONCE STA Sodium Chloride 0.9% [Sodium Chloride] 1,000 ml MEDS 01/30/23 16:10 Discontinued IV 500 mls/hr Sodium Chloride 0.9% [Sodium Chloride] 1,000 ml MEDS 01/30/23 16:[address] ABDOMEN/PELVIS W CONTRAST Stat RADS 01/30/23 16:08 Completed Medications Generic Name Dose Route Start Last Admin Trade Name Freq PRN Reason Stop Dose Admin Sodium Chloride 1 syr 01/30/23 16:10 0.9% Sodium Chloride 10 Ml Disp.Syrin IVF PRN PRN To flush IV Discontinued Medications Generic Name Dose Route Start Last Admin Trade Name Freq PRN Reason Stop Dose Admin Hydromorphone HCl 1 mg 01/30/23 17:44 01/30/23 17:49 Hydromorphone Hcl 1 Mg/Ml Syringe IV 01/30/23 17:45 1 mg ONCE ONE Administration Sodium Chloride 1,000 mls @ 500 mls/hr 01/30/23 16:10 01/30/23 16:28 Sodium Chloride IV 01/30/23 18:09 500 mls/hr .Q2H STA Administration Sodium Chloride 1,000 mls @ 1,000 mls/hr 01/30/23 16:54 01/30/23 17:22 Sodium Chloride IV 01/30/23 17:53 1,000 mls/hr BOLUS STA Administration Levofloxacin/Dextrose 500 mg in 100 mls @ 100 mls/hr 01/30/23 16:56 01/30/23 17:22 Levaquin 500 Mg/100 Ml D5w IV 01/30/23 17:55 100 mls/hr ONCE ONE Administration Morphine Sulfate 4 mg 01/30/23 16:08 01/30/23 16:27 Morphine Sulfate 4 Mg/Ml Syringe IVP 01/30/23 16:09 4 mg ONCE STA Administration Ondansetron HCl 4 mg 01/30/23 16:08 01/30/23 16:27 Ondansetron Hcl/Pf 4 Mg/2 Ml Sdv IVP 01/30/23 16:09 4 mg ONCE STA Administration Vital Signs: Temp Pulse Resp BP Pulse Ox 01/30/23 15:43 98.0 F 116 H 24 H 132/81 99 Discharge Plan Discharge Patient Disposition: PLACED OBSERVATION Discharge Problem: Leukocytosis, Acute bacterial prostatitis Prescriptions: No Action Dayvigo 10 mg tablet 10 mg PO QHS 30 Days Qty: 30 0RF oxcarbazepine [Trileptal] 150 mg tablet 150 mg PO QDAY 30 Days Qty: 30 2RF tamsulosin 0.4 mg capsule See Rx Instructions .ROUTE .COMPLEX Qty: 90 0RF Dose Instruction: TAKE 1 CAPSULE BY MOUTH DAILY Rx Instructions: TAKE 1 CAPSULE BY MOUTH DAILY atorvastatin 20 mg tablet See Rx Instructions .ROUTE .COMPLEX Qty: 90 0RF Dose Instruction: TAKE 1 TABLET BY MOUTH AT BEDTIME Rx Instructions: TAKE 1 TABLET BY MOUTH AT BEDTIME lisinopril 10 mg tablet 20 mg PO BEDTIME clonidine HCl 0.1 mg Tablet 0.1 mg PO Q4H PRN (Reason: Hypertension) tizanidine [Zanaflex] 4 mg Tablet 4 mg PO BEDTIME bupropion HCl [Wellbutrin SR] 150 mg tablet sustained-release 12 hr 150 mg PO Q12H 30 Days Qty: 60 0RF duloxetine [Cymbalta] 60 mg capsule,delayed release(DR/EC) 60 mg PO QDAY levofloxacin 500 mg tablet 500 mg PO Q24H 14 Days Qty: 14 0RF 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 NOW PRESENTS TO EMERGENCY WITH COMPLAINTS OF SUPRAPUBIC ABDOMINAL PAIN, AND EMESIS X 10 TODAY. DENIES FEVER, CHILLS FLANK PAIN OR DIARRHEA. TREATED WITH ANTIBIOTIC X 4 DAYS AND MEDROL DOSEPAK OR [address] AND [address] ABD PELVIS REVIEWED AND WITHIN NORMAL LIMITS EXCEPT FOR ELEVATED WBC 31,700 PATIENT GIVEN BOLUS IV NORMAL SALINE, IV ZOFRAN 4MG MORPHINE 4MG FOLLOWED BY DIALUDID 1MG, PAIN IMPROVED FOR PAIN SCALE 10/10 TO 4/[address] SCAN INTRAVENOUS CONTRAST FINDINGS: Lung bases: The lung bases are clear. Liver: Normal. Gallbladder/bilary tree: The gallbladder is surgically absent and there is no biliary dilatation. Pancreas: Normal. Adrenal glands: Normal. Spleen: Normal. Kidneys: Normal. Retroperitoneum: Normal. Peritoneum: Normal. Bowel: The intestines have normal caliber without evidence of obstruction or acute inflammation. The appendix is normal. Pelvis: Normal. Addominal wall/bones: A unilateral left pars defect is noted at L5. No associated spondylolisthesis. No suspicious bone lesions or acute osseous abnormalities. No significant body wall hernias. IMPRESSION: - No CT explanation for the patient's symptoms. [id number] CONSULTED HOSPITALIST SHANNON FOR OBSERVATION
[2023-01-30] MEDS ORDERED: SODIUM CHLORIDE 1,000 ML IV STA ×2 (16:10→16:54)
[2023-01-30 16:27] LABS: BASOPHILS # (AUTO) 0.2 K/uL (0-0.2); BASOPHILS % (AUTO) 0.5 % (0.0-3.0); EOSINOPHILS # (AUTO) 0.1 K/ul (0.0-0.7); EOSINOPHILS % (AUTO) 0.3 % (0.0-7.0); HEMATOCRIT 52.9 % (42.0-52.0); IMMATURE GRANULOCYTE # (AUTO) 0.2 (0.0-1.0); IMMATURE GRANULOCYTE % (AUTO) 0.8 % (0.0-5.0); LYMPHOCYTES # (AUTO) 3.2 K/uL (0.60-3.4); LYMPHOCYTES % (AUTO) 9.9 (10.0-50.0); MEAN CORPUSCULAR HEMOGLOBIN 30.3 pg (27.0-31.0); MEAN CORPUSCULAR VOLUME 89.1 fl (80.0-94.0); MONOCYTES % (AUTO) 9.4 (0-10); NEUTROPHILS # (AUTO) 25.1 K/ul (2.0-6.9); NEUTROPHILS % (AUTO) 79.1 % (42.2-75.2); PLATELET COUNT 431 10^3/uL (140-440); RDW COEFFICIENT OF VARIATION 12.6 % (11.6-14.8); RED BLOOD COUNT 5.94 10^6/ul (4.70-6.10)
[2023-01-30 16:30] LABS: WHITE BLOOD COUNT 31.71 K/ul (4.2-10.2)
[2023-01-30 16:36] LABS: ALANINE AMINOTRANSFERASE 56.9 U/L (0-50); ALBUMIN 4.75 g/dL (3.5-5.0); ALKALINE PHOSPHATASE 85.7 U/L (38-126); ASPARTATE AMINO TRANSFERASE 54.9 U/L (17-59); BILIRUBIN,TOTAL 2.06 mg/dL (0.2-1.3); BLOOD UREA NITROGEN 22.1 mg/dL (9-20); CALCIUM 9.55 mg/dL (8.4-10.2); CARBON DIOXIDE 21.2 mmol/L (22-30.0); CHLORIDE 94.6 mmol/L (98-107); CREATININE 1.31 mg/dL (0.60-1.10); POTASSIUM 4.02 mmol/L (3.5-5.1); SODIUM 132.7 mmol/L (134.5-145); TOTAL PROTEIN 8.03 g/dL (6.3-8.2)
[2023-01-30] MEDS ORDERED: LEVAQUIN 500 MG/100 ML D5W 500 MG/100 ML BAG IV ONE (16:56)
--- NOTE | 2023-01-30 17:05 | CT ---
EXAM: CT ABDOMEN/PELVIS WITH CONTRAST HISTORY: Lower abdominal pain COMPARISON: CT abdomen/pelvis from 06/11/2022 TECHNIQUE: Multi-slice postcontrast transaxial helical images are acquired through the abdomen and p koki with coronal and sagittal reconstructed images. All CT scans are performed using dose optimi zation techniques as appropriate to the performed exam and includes at least one of the following: A utomated exposure control, adjustment of the mA and/or kV according to size, and the use of iterative reconstruction technique. CONTRAST: 75 mL Omnipaque-350 IV FINDINGS: Lung bases: The lung bases are clear. Liver: Normal. Gallbladder/bilary tree: The gallbladder is surgically absent and there is no biliary dilatation. Pancreas: Normal. Adrenal glands: Normal. Spleen: Normal. Kidneys: Normal. Retroperitoneum: Normal. Peritoneum: Normal. Bowel: The intestines have normal caliber without evidence of obstruction or acute inflammation. Th e appendix is normal. Pelvis: Normal. Addominal wall/bones: A unilateral left pars defect is noted at L5. No associated spondylolisthesis . No suspicious bone lesions or acute osseous abnormalities. No significant body wall hernias. IMPRESSION: - No CT explanation for the patient's symptoms. . All CT scans are performed using dose optimization techniques as appropriate to the performed exam an d include at least one of the following: Automated exposure control, adjustment of the mA and/or kV according t o size, and the use of iterative reconstruction technique.
[2023-01-30 17:38] LABS: BILIRUBIN,URINE Negative (NEGATIVE); CLARITY,URINE Clear (CLEAR); COLOR,URINE Dark (YELLOW); GLUCOSE, URINE (UA) Negative (NEGATIVE); KETONES,URINE 2+ (NEGATIVE); LEUKOCYTE ESTERASE ,URINE Negative (NEGATIVE); NITRITE,URINE Negative (NEGATIVE); PH,URINE >=9.0 (5-9); PROTEIN,URINE 2+ (NEGATIVE); URINE, BLOOD Negative (NEGATIVE)
[2023-01-30 17:42] LABS: SQUAMOUS EPITHELIAL CELL,UR NOT PRESENT (0-5)
[2023-01-30 17:44] LABS: MUCUS,URINE TRACE (NOT PRESENT); URINE RBC, MICROSCOPIC 0-2 (0-2); URINE WBC, MICROSCOPIC 0-2 (0-2)
[2023-01-30] MEDS ORDERED: DILAUDID 1 MG/ML SYRINGE IV ONE (17:44)
[2023-01-30 17:47] LABS: AMPHETAMINE SCREEN,URINE NEGATIVE (NEGATIVE); BARBITURATE SCREEN,URINE NEGATIVE (NEGATIVE); BENZODIAZEPINES SCREEN,URINE NEGATIVE (NEGATIVE); CANNABINOID SCREEN,URINE POSITIVE (NEGATIVE); COCAIN SCREEN,URINE NEGATIVE (NEGATIVE); METHADONE URINE SCREEN NEGATIVE (NEGATIVE); METHAMPHETAMINES SCREEN,URINE NEGATIVE (NEGATIVE); OPIATE SCREEN,URINE POSITIVE (NEGATIVE); OXYCODONE URINE SCREEN NEGATIVE (NEGATIVE); PHENCYCLIDINE SCREEN,URINE NEGATIVE (NEGATIVE); PROPOXYPHENE URINE SCREEN NEGATIVE (NEGATIVE); TRICYCLIC ANTIDEPRESSANTS URIN NEGATIVE (NEGATIVE)
[2023-01-30 19:20] LABS: SARS COV-2 RNA RAPID NAAT NEGATIVE (NEGATIVE)
[2023-01-30 20:47] VITALS: BMI 31.4
[2023-01-30] MEDS ORDERED: LACTATED RINGERS 1,000 ML IV STA (20:53)
[2023-01-30] MEDS ORDERED: TYLENOL PO PRN (20:54)
[2023-01-30] MEDS: ZOFRAN 4 MG/2 ML IVP PRN (21:06)
[2023-01-30] MEDS: MORPHINE 2 MG/ML SYRINGE IVP PRN (21:07)
[2023-01-30] MEDS: LACTATED RINGERS 1,000 ML IV SCH (22:13)
[2023-01-30] MEDS: ZANAFLEX PO SCH (22:13)
[2023-01-30] MEDS: CYMBALTA PO SCH (22:52)
[2023-01-30] MEDS: LIPITOR PO SCH (22:52)
[2023-01-30] MEDS: FLOMAX PO SCH (22:52)
[2023-01-30] MEDS: TRILEPTAL PO SCH (22:53)
[2023-01-31] MEDS: LACTATED RINGERS 1,000 ML IV SCH ×6 (01:12→22:30)
[2023-01-31] MEDS: MORPHINE 2 MG/ML SYRINGE IVP PRN ×2 (01:12→05:22)
[2023-01-31] MEDS: ZOFRAN 4 MG/2 ML IVP PRN ×3 (03:26→17:57)
[2023-01-31 05:00] LABS: HEMATOCRIT 47.9 % (42.0-52.0); HEMOGLOBIN 16.1 g/dl (14.0-18.0); MEAN CORPUSCULAR HGB CONC 33.6 (31.8-35.4); MEAN CORPUSCULAR VOLUME 92.1 fl (80.0-94.0); PLATELET COUNT 290 10^3/uL (140-440); RDW COEFFICIENT OF VARIATION 12.9 % (11.6-14.8); WHITE BLOOD COUNT 19.02 K/ul (4.2-10.2)
[2023-01-31 05:12] LABS: ALBUMIN 3.91 g/dL (3.5-5.0); ALKALINE PHOSPHATASE 55.6 U/L (38-126); ANISOCYTOSIS NOT PRESENT (NOT PRESENT); BLOOD UREA NITROGEN 15.8 mg/dL (9-20); CALCIUM 8.68 mg/dL (8.4-10.2); CARBON DIOXIDE 32.6 mmol/L (22-30.0); CHLORIDE 94.6 mmol/L (98-107); CREATININE 1.11 mg/dL (0.60-1.10); GLUCOSE 94.3 mg/dL (74-106); LIPASE 1510.4 U/L (23-300); POTASSIUM 4.82 mmol/L (3.5-5.1); SODIUM 133.2 mmol/L (134.5-145); TOTAL PROTEIN 6.97 g/dL (6.3-8.2)
[2023-01-31 05:19] LABS: ALANINE AMINOTRANSFERASE 112.6 U/L (0-50); BILIRUBIN,TOTAL 5.8 mg/dL (0.2-1.3)
[2023-01-31] MEDS: DILAUDID 1 MG/ML SYRINGE IVP PRN ×5 (05:54→21:56)
--- NOTE | 2023-01-31 08:37 | US ---
EXAM: ULTRASOUND OF THE RIGHT UPPER QUADRANT (LIMITED ABDOMEN) HISTORY: Abdomen pain and vomiting TECHNIQUE: Sonography of the right upper quadrant of the abdomen was performed. Color Doppler imagin g and spectral Doppler imaging of the portal vein was also performed. Images were obtained and store d in a permanent archive. COMPARISON: CT abdomen pelvis 01/30/2023 FINDINGS: Liver: Normal size and echogenicity. No mass. No intrahepatic biliary ductal dilatation. Main portal vein: Normal hepatopedal flow. Gallbladder and bile ducts: Cholecystectomy. The common bile duct measures 6 mm. Pancreas: Not well seen due to bowel gas. Right Kidney: Not well seen due to bowel gas. Fluid: No ascites. Other: None. IMPRESSION: 1. Limited examination due to bowel gas. Cholecystectomy. No acute findings.
[2023-01-31] MEDS ORDERED: WELLBUTRIN XL PO SCH (09:00)
[2023-01-31] MEDS: LEVAQUIN 750 MG/150 ML D5W 750 MG/150 ML BAG IV SCH (09:18)
[2023-01-31] MEDS: CYMBALTA PO SCH ×2 (09:35→20:51)
[2023-01-31] MEDS: FLOMAX PO SCH ×2 (09:36→20:19)
[2023-01-31] MEDS: TRILEPTAL PO SCH ×2 (09:36→20:49)
--- NOTE | 2023-01-31 12:05 | PCM ---
Date of Service Date Seen by Provider: 01/31/23 Time Seen by Provider: 08:15 Admit Day/Time Admission Date: 01/30/23 Admission Time: 19:59 Reason for Admission Chief Complaint: ACUTE PROSTITIS Hospital Provider Hospital Provider: SHANNON KLEIN PA-C, [facility] Primary Care Physician Primary Care Physician: LEE NOEL APRN History of Present Illness History of Present Illness: Patient is a 42 year old male with pmhx of pancreatitis, depression/anxiety, hyperlipidemia, hypertension who presents to ER for trouble urinating and abdominal pain/vomiting. He states the trouble urinating started a few weeks ago, prior to starting cymbalta. It started as slow stream, progressed to being unable to start or stop stream. He often feels like he needs to urinate but then can't, complains of a lot of pressure. Had an ER visit on 01/26 for urinary retention, required straight cath and was given an IM antibiotic, prescribed a steroid and pyridium. He felt the pyridium helped. His urine culture from that visit was negative. He followed up with PCP on 01/29 who referred him to urology and prescribed him levaquin for suspect prostatitis. Prostate exam on that date normal. Patient denies new medications other than the cymbalta, and he was also started on wellbutrin for sexual issues. He does admit to using testosterone, creatine and amino acids, but this is not new for him. The abdominal pain and vomiting started yesterday morning. He describes the pain as intense and "all over". He is unsure of if it is similar to pancreatitis in the past. Lipase >1000 in ER. Fluids and pain medication given. He states he had pancreatitis in 06/08 and then two more times at other hospitals until ultimately his gallbladder was taken out. He was told that was the cause. He denies alcohol use. CT abd/pelvis in ER was negative. WBC 31. Trigs normal in 01/07. Today during evaluation patient states the dilaudid provided him relief finally. He felt like taking a shower. He still does not feel like eating or drinking. He is still having urinary frequency, urgency, and suprapubic pressure. However he is able to void. Case Discussed With Case Discussed With: Patient's case was discussed with the ER Physicians, Dr. Duarte. PMSFH Medical History Depression F32.A - Depression, unspecified (ICD-10) HTN (hypertension) I10 - Essential (primary) hypertension (ICD-10) Hyperlipemia E78.5 - Hyperlipidemia, unspecified (ICD-10) PTSD (post-traumatic stress disorder) F43.10 - Post-traumatic stress disorder, unspecified (ICD-10) Surgical History H/O shoulder surgery Z98.890 - Other specified postprocedural states (ICD-10) History of cholecystectomy Z90.49 - Acquired absence of other specified parts of digestive tract (ICD- 10) Family History Other No pertinent family history Social History Smoking and tobacco status: Never smoker Details: occasional ETOH Allergies Allergies Allergy/AdvReac Type Severity Reaction Status Date / Time cefaclor [From [facility]] AdvReac Unknown Verified 01/30/23 16:07 Current Medications Home Medications clonidine HCl 0.1 mg tablet 0.1 mg PO Q4H PRN Hypertension 06/09/22 [History Con firmed 01/30/23 Last Taken Unknown] lisinopril 10 mg tablet 20 mg PO BEDTIME 06/09/22 [History Confirmed 01/30/23 Last Taken Unknown] tizanidine 4 mg tablet (Zanaflex) 4 mg PO BEDTIME 06/09/22 [History Confirmed 01/30/23 Last Taken Unknown] Dayvigo 10 mg tablet (lemborexant) 10 mg PO QHS 30 days #30 tabs 01/02/23 [Rx Confirmed 01/30/23 Last Taken Unknown] oxcarbazepine 150 mg tablet (Trileptal) 150 mg PO QDAY 30 days #30 tabs 01/11/23 [Rx Confirmed 01/30/23 Last Taken Unknown] bupropion HCl 150 mg tablet,12 hr sustained-release (Wellbutrin SR) 150 mg PO Q12H 30 days #60 ea 01/16/23 [Rx Confirmed 01/30/23 Last Taken Unknown] atorvastatin 20 mg tablet See Rx Instructions .Route .COMPLEX #90 tabs 01/29/23 [Rx Confirmed 01/30/23 Last Taken Unknown] duloxetine 60 mg capsule,delayed release (Cymbalta) 60 mg PO QDAY 01/29/23 [History Confirmed 01/30/23 Last Taken Unknown] levofloxacin 500 mg tablet 500 mg PO Q24H 14 days #14 tabs 01/29/23 [Rx Confirmed 01/30/23 Last Taken Unknown] tamsulosin 0.4 mg capsule See Rx Instructions .Route .COMPLEX #90 caps 01/29/23 [Rx Confirmed 01/30/23 Last Taken Unknown] Home Acetaminophen (Acetaminophen 325 Mg Tablet) 650 mg PO Q6HR PRN PRN Reason: fever Atorvastatin Calcium (Atorvastatin Calcium 20 Mg Tablet) 20 mg PO BEDTIME [facility] Last Admin: 01/30/23 22:52 Dose: Not Given Bupropion HCl (Bupropion Hcl 150 Mg Tab.Er.24h) 150 mg PO BID [facility] Duloxetine HCl (Duloxetine Hcl 30 Mg Capsule.Dr) 60 mg PO BEDTIME [facility] Enoxaparin Sodium (Enoxaparin Sodium 40 Mg/0.4 Ml Syr) 40 mg SUBCUT DAILY [facility] Last Admin: 01/31/23 13:55 Dose: 40 mg Hydromorphone HCl (Hydromorphone Hcl 1 Mg/Ml Syringe) 1 mg IVP Q4HR PRN PRN Reason: Severe Pain Last Admin: 01/31/23 14:02 Dose: 1 mg Levofloxacin/Dextrose (Levaquin 750 Mg/150 Ml D5w) 750 mg in 150 mls @ 100 mls/hr IV DAILY [facility] Stop: 02/03/23 08:59 Last Admin: 01/31/23 09:18 Dose: 100 mls/hr Lactated Ringer's (Lactated Ringers) 1,000 mls @ 250 mls/hr IV .Q4H [facility] Last Admin: 01/31/23 14:43 Dose: 250 mls/hr Lisinopril (Lisinopril 10 Mg Tablet) 20 mg PO BEDTIME [facility] Morphine Sulfate (Morphine Sulfate 2 Mg/Ml Syringe) 2 mg IVP Q4HR PRN PRN Reason: Abdominal Pain Last Admin: 01/31/23 05:22 Dose: 2 mg Non-Formulary Medication (Lemborexant [Dayvigo]) 10 mg PO BEDTIME [facility] Ondansetron HCl (Ondansetron Hcl/Pf 4 Mg/2 Ml Sdv) 4 mg IVP Q6HR PRN PRN Reason: Nausea / Vomiting Last Admin: 01/31/23 09:24 Dose: 4 mg Oxcarbazepine (Oxcarbazepine 150 Mg Tablet) 150 mg PO BEDTIME [facility] Sodium Chloride (0.9% Sodium Chloride 10 Ml Disp.Syrin) 1 syr IVF PRN PRN PRN Reason: To flush IV Tamsulosin HCl (Tamsulosin Hcl 0.4 Mg Cap.Er.24h) 0.4 mg PO BEDTIME [facility] Tizanidine HCl (Tizanidine Hcl 4 Mg Tablet) 4 mg PO BEDTIME [facility] Last Admin: 01/30/23 22:13 Dose: 4 mg Discontinued Medications Bupropion HCl (Bupropion Hcl 150 Mg Tab.Er.24h) 300 mg PO DAILY [facility] Last Admin: 01/31/23 09:36 Dose: Not Given Duloxetine HCl (Duloxetine Hcl 30 Mg Capsule.Dr) 60 mg PO DAILY [facility] Last Admin: 01/31/23 09:35 Dose: Not Given Hydromorphone HCl (Hydromorphone Hcl 1 Mg/Ml Syringe) 1 mg IV ONCE ONE Stop: 01/30/23 17:45 Last Admin: 01/30/23 17:49 Dose: 1 mg Sodium Chloride (Sodium Chloride) 1,000 mls @ 500 mls/hr IV .Q2H [facility] Stop: 01/30/23 18:09 Last Admin: 01/30/23 16:28 Dose: 500 mls/hr Sodium Chloride (Sodium Chloride) 1,000 mls @ 1,000 mls/hr IV BOLUS STA Stop: 01/30/23 17:53 Last Admin: 01/30/23 17:22 Dose: 1,000 mls/hr Levofloxacin/Dextrose (Levaquin 500 Mg/100 Ml D5w) 500 mg in 100 mls @ 100 mls/hr IV ONCE ONE Stop: 01/30/23 17:55 Last Admin: 01/30/23 17:22 Dose: 100 mls/hr Lactated Ringer's (Lactated Ringers) 1,000 mls @ 1,000 mls/hr IV BOLUS STA Stop: 01/30/23 21:52 Last Admin: 01/30/23 21:07 Dose: 1,000 mls/hr Morphine Sulfate (Morphine Sulfate 4 Mg/Ml Syringe) 4 mg IVP ONCE STA Stop: 01/30/23 16:09 Last Admin: 01/30/23 16:27 Dose: 4 mg Non-Formulary Medication (Bupropion Hcl [Wellbutrin Sr]) 150 mg PO Q12H [facility] Last Admin: 01/30/23 22:53 Dose: Not Given Ondansetron HCl (Ondansetron Hcl/Pf 4 Mg/2 Ml Sdv) 4 mg IVP ONCE STA Stop: 01/30/23 16:09 Last Admin: 01/30/23 16:27 Dose: 4 mg Oxcarbazepine (Oxcarbazepine 150 Mg Tablet) 150 mg PO DAILY [facility] Last Admin: 01/31/23 09:36 Dose: Not Given Tamsulosin HCl (Tamsulosin Hcl 0.4 Mg Cap.Er.24h) 0.4 mg PO DAILY [facility] Last Admin: 01/31/23 09:36 Dose: Not Given Review of Systems Constitutional: Denies Fever, Fatigue or Weakness Head: Reports Normocephalic and Atraumatic Eyes: Denies Vision Changes Ears: Denies Pain Nose: Denies Post Nasal Drip or Congestion Mouth: Denies Sores Throat: Denies Sore Throat or Difficulty Swallowing Cardiovascular: Denies Chest pain or Chest Pressure Respiratory: Denies Cough or Shortness of air Gastrointestinal: Reports Nausea, Vomiting and Abdominal pain; Denies Diarrhea, Constipation, Heartburn or Black Tarry Stools Genitourinary: Reports Dysuria and Frequency Musculoskeletal: Reports No symptoms Dermatologic: Denies Rashes Hematology: Denies Easy bleeding or Anemia Neurological: Denies Headache, Dizziness, Syncope or Weakness Psychiatric: Reports Depression and Anxiety; Denies Suicidal Physical examination Most Recent Vital Signs: Most Recent Vital Signs Temperature 97.6 F 01/31/23 10:00 Temperature Source Oral 01/31/23 10:00 Temperature Source Infrared 01/30/23 15:43 Pulse Rate 92 01/31/23 10:00 Respiratory Rate 18 01/31/23 10:00 Blood Pressure 169/96 H 01/31/23 10:00 Blood Pressure Mean 120 01/31/23 10:00 Blood Pressure Left Arm 170/100 01/30/23 20:39 Blood Pressure Location Right Arm 01/31/23 10:00 Blood Pressure Position Supine 01/31/23 05:20 O2 Sat by Pulse Oximetry 98 01/31/23 10:00 Oxygen Delivery Method Room Air 01/31/23 10:00 Height 5 ft 10 in 01/30/23 20:39 Weight 219 lb 01/30/23 20:39 Telemetry Type Remote Telemetry 01/31/23 07:00 Telemetry Monitoring Continues 01/31/23 07:00 Telemetry Heart Rate 82 01/31/23 07:00 EKG RI Interval 0.14 01/31/23 07:00 EKG QRS Interval 0.07 01/31/23 07:00 Telemetry Strip Reading SR 01/31/23 07:00 Appearance: Positive Well-appearing, Well-nourished and Alert and Oriented x3 Skin: Positive Jaundice (sclera ) HEENT: Positive Normocephalic and Atraumatic Neck: Positive Supple and Midline Trachea Chest/Lungs: Positive Symmetrical With Equal Breath Sounds and Clear to Auscultation Bilaterally Heart: Positive RRR GI/: Positive Soft, Bowel Sounds Normal, No Distention and Other (Rectal exam performed with Shakira MONTENEGRO present. Normal rectal tone. No pain with palpation of prostate. Prostate somewhat boggy. No masses noted. ); Negative Nontender (+generalized tenderness) Musculoskeletal: Positive Normal Gait and Station Neurological: Positive Sensation Intact, Cranial Nerves Intact, Alert, Oriented and Muscle Strength 5/5 in Upper and Lower Extremities Bilaterally Psychiatric: Positive Oriented x4, Appropriate Mood and Appropriate Affect Labs This Visit Labs This Visit: Labs This Visit 01/30/23 01/30/23 01/30/23 16:20 17:18 17:20 WBC 31.71 H D RBC 5.94 Hgb 18.0 Hct 52.9 H MCV 89.1 MCH 30.3 MCHC 34.0 RDW Coeff of Meli 12.6 Plt Count 431 Immature Gran % (Auto) 0.8 Neut % (Auto) 79.1 H Lymph % (Auto) 9.9 L [place] % (Auto) 9.4 Eos % (Auto) 0.3 Baso % (Auto) 0.5 Neut # (Auto) 25.1 H Lymph # (Auto) 3.2 [place] # (Auto) 3.0 H Eos # (Auto) 0.1 Baso # (Auto) 0.2 Immature Gran # (Auto) 0.2 Neutrophils % (Manual) Lymphocytes % (Manual) Monocytes % (Manual) Anisocytosis Sodium 132.7 L Potassium 4.02 Chloride 94.6 L Carbon Dioxide 21.2 L Anion Gap 20.92 BUN 22.1 H Creatinine 1.31 H Estimated GFR (MDRD) 60.00 BUN/Creatinine Ratio 16.87 Glucose 131.0 H Hemoglobin A1c Lactic Acid 1.96 Calcium 9.55 Total Bilirubin 2.06 H Direct Bilirubin AST 54.9 ALT 56.9 H Alkaline Phosphatase 85.7 Total Protein 8.03 Albumin 4.75 Globulin 3.28 Albumin/Globulin Ratio 1.44 Lipase 1082.4 H Urine Color Dark Urine Clarity Clear Urine pH >=9.0 Ur Specific Williams 1.010 Urine Protein 2+ H Urine Glucose (UA) Negative Urine Ketones 2+ H Urine Blood Negative Urine Nitrite Negative Urine Bilirubin Negative Urine Urobilinogen 1.0 H Ur Leukocyte Esterase Negative Urine Microscopic RBC 0-2 Urine Microscopic WBC 0-2 Ur Squamous Epith Cells Not present Urine Mucus Trace Urine Opiates Screen Positive H Ur Oxycodone Screen Negative Urine Methadone Screen Negative Ur Propoxyphene Screen Negative Ur Barbiturates Screen Negative U Tricyclic Antidepress Negative Ur Phencyclidine Scrn Negative Ur Amphetamine Screen Negative U Methamphetamines Scrn Negative U Benzodiazepines Scrn Negative Urine Cocaine Screen Negative U Cannabinoids Screen Positive H SARS CoV-2 RNA Rapid BETITO 01/30/23 01/31/23 18:25 04:48 WBC 19.02 H D RBC 5.20 Hgb 16.1 Hct 47.9 MCV 92.1 MCH 31.0 MCHC 33.6 RDW Coeff of Meli 12.9 Plt Count 290 D Immature Gran % (Auto) Neut % (Auto) Lymph % (Auto) [place] % (Auto) Eos % (Auto) Baso % (Auto) Neut # (Auto) Lymph # (Auto) [place] # (Auto) Eos # (Auto) Baso # (Auto) Immature Gran # (Auto) Neutrophils % (Manual) 77.0 H Lymphocytes % (Manual) 8.0 L Monocytes % (Manual) 15.0 H Anisocytosis Not present Sodium 133.2 L Potassium 4.82 Chloride 94.6 L Carbon Dioxide 32.6 H D Anion Gap 10.82 BUN 15.8 Creatinine 1.11 H Estimated GFR (MDRD) 73.00 BUN/Creatinine Ratio 14.23 Glucose 94.3 Hemoglobin A1c 5.59 Lactic Acid Calcium 8.68 Total Bilirubin 5.80 H D Direct Bilirubin 2.97 H AST 135.0 H D ALT 112.6 H D Alkaline Phosphatase 55.6 D Total Protein 6.97 Albumin 3.91 Globulin 3.06 Albumin/Globulin Ratio 1.27 Lipase 1510.4 H Urine Color Urine Clarity Urine pH Ur Specific Williams Urine Protein Urine Glucose (UA) Urine Ketones Urine Blood Urine Nitrite Urine Bilirubin Urine Urobilinogen Ur Leukocyte Esterase Urine Microscopic RBC Urine Microscopic WBC Ur Squamous Epith Cells Urine Mucus Urine Opiates Screen Ur Oxycodone Screen Urine Methadone Screen Ur Propoxyphene Screen Ur Barbiturates Screen U Tricyclic Antidepress Ur Phencyclidine Scrn Ur Amphetamine Screen U Methamphetamines Scrn U Benzodiazepines Scrn Urine Cocaine Screen U Cannabinoids Screen SARS CoV-2 RNA Rapid BETITO Negative Imaging Imagining: EXAM: CT ABDOMEN/PELVIS WITH CONTRAST HISTORY: Lower abdominal pain COMPARISON: CT abdomen/pelvis from 06/11/2022 TECHNIQUE: Multi-slice postcontrast transaxial helical images are acquired through the abdomen and pelvis with coronal and sagittal reconstructed images. All CT scans are performed using dose optimization techniques as appropriate to the performed exam and includes at least one of the following: Automated exposure control, adjustment of the mA and/or kV according to size, and the use of iterative reconstruction technique. CONTRAST: 75 mL Omnipaque-350 IV FINDINGS: Lung bases: The lung bases are clear. Liver: Normal. Gallbladder/bilary tree: The gallbladder is surgically absent and there is no biliary dilatation. Pancreas: Normal. Adrenal glands: Normal. Spleen: Normal. Kidneys: Normal. Retroperitoneum: Normal. Peritoneum: Normal. Bowel: The intestines have normal caliber without evidence of obstruction or acute inflammation. The appendix is normal. Pelvis: Normal. Addominal wall/bones: A unilateral left pars defect is noted at L5. No associated spondylolisthesis. No suspicious bone lesions or acute osseous abnormalities. No significant body wall hernias. IMPRESSION: - No CT explanation for the patient's symptoms. Review Statement Review Statement: I have independently reviewed and interpreted the labs/EKGs/imaging that were ordered by the ER provider. I have reviewed all outside records that are available currently in our EMR including imaging/notes/labs from previous visits. Plan Plan: A&P: 1. Acute pancreatitis due to unknown etiology - RUQ US negative. CT a/p w/ contrast negative. Lipase mildly worsened to 1500 today. Repeat tomorrow AM. NPO. Continue LR at 250 ml/hr. Will need outpatient GI follow up due to recurrent pancreatitis. 2. Acute prostatitis, bacterial - Patient experiencing urinary retention, frequency, urgency. UC pending. WBC improved. Continue levaquin. Will need outpatient urology follow up. If patient experiences retention again requiring cathing, will insert sarkar catheter to avoid further irritation of prostate. 3. Elevated liver enzymes with conjugated hyperbilirubinemia in setting of acute pancreatitis - Patient is post cholecystectomy. US RUQ negative. Continue hydration and recheck in AM. 4. Hypertension - Continue home medications 5. Anxiety/depression - Patient takes trileptal which has pancreatitis as a side effect, however he states he's been on it "forever." Also cymbalta could contribute to urinary retention but he states urinary issues began prior to starting cymbalta. DVT Prophylaxis: Lovenox Time Spent: Greater than 80 minutes spent with patient, 50% of the time spent with this patient was devoted to counseling and coordination of care. [facility] minutes spent discussing advance care planning. FULL CODE. Admit to: Obs Discussed Plan of Care with Dr. Cristopher Velasquez. Medications Medication Orders: Medications Ordered Category Date Time Status 0.9 % Sodium Chloride [Saline Flush] MEDS 01/30/23 16:10 Active 1 syr IVF PRN PRN Acetaminophen [Tylenol] MEDS 01/30/23 20:54 Active 650 mg PO Q6HR PRN Atorvastatin Calcium [Lipitor] MEDS 01/30/23 21:00 Active 20 mg PO BEDTIME Bupropion HCl [Wellbutrin Xl] MEDS 01/31/23 21:00 Active 150 mg PO BID Duloxetine HCl [Cymbalta] MEDS 01/31/23 21:00 Active 60 mg PO BEDTIME Hydromorphone HCl [Dilaudid 1 mg/ml Syringe] MEDS 01/31/23 05:38 Active 1 mg IVP Q4HR PRN Levofloxacin/D5w [Levaquin 750 mg/150 ml D5w] MEDS 01/31/23 09:00 Active 750 mg in 150 ml IV DAILY Morphine Sulfate [Morphine 2 mg/ml Syringe] MEDS 01/30/23 20:54 Active 2 mg IVP Q4HR PRN Ondansetron HCl/Pf [Zofran 4 mg/2 ml] MEDS 01/30/23 20:54 Active 4 mg IVP Q6HR PRN Oxcarbazepine [Trileptal] MEDS 01/31/23 21:00 Active 150 mg PO BEDTIME Ringers Lactated Solution [Lactated Ringers] 1,000 ml MEDS 01/30/23 21:00 Active IV 250 mls/hr Tamsulosin HCl [Flomax] MEDS 01/31/23 21:00 Active 0.4 mg PO BEDTIME Tizanidine HCl [Zanaflex] MEDS 01/30/23 21:30 Active 4 mg PO BEDTIME lemborexant [Dayvigo] MEDS 01/30/23 21:00 Active 10 mg PO BEDTIME
[2023-01-31] MEDS: LOVENOX SUBCUT SCH (13:55)
[2023-01-31] MEDS: ZANAFLEX PO SCH (20:19)
[2023-01-31] MEDS: ZESTRIL PO SCH (20:19)
[2023-01-31] MEDS: WELLBUTRIN XL PO SCH (20:49)
[2023-01-31] MEDS: LIPITOR PO SCH (20:50)
[2023-01-31] MEDS: LEMBOREXANT 10 MG PO SCH ×2 (20:51→20:52)
[2023-02-01] MEDS: DILAUDID 1 MG/ML SYRINGE IVP PRN ×2 (01:58→07:11)
[2023-02-01] MEDS: LACTATED RINGERS 1,000 ML IV SCH ×7 (02:01→23:53)
[2023-02-01 04:59] LABS: BASOPHILS # (AUTO) 0.1 K/uL (0-0.2); BASOPHILS % (AUTO) 0.3 % (0.0-3.0); EOSINOPHILS # (AUTO) 0.1 K/ul (0.0-0.7); EOSINOPHILS % (AUTO) 0.3 % (0.0-7.0); IMMATURE GRANULOCYTE # (AUTO) 0.1 (0.0-1.0); IMMATURE GRANULOCYTE % (AUTO) 0.5 % (0.0-5.0); LYMPHOCYTES # (AUTO) 1.5 K/uL (0.60-3.4); LYMPHOCYTES % (AUTO) 6.5 (10.0-50.0); MEAN CORPUSCULAR HEMOGLOBIN 30.7 pg (27.0-31.0); MEAN CORPUSCULAR HGB CONC 33.3 (31.8-35.4); MONOCYTES # (AUTO) 1.9 K/uL (0.4-2.0); MONOCYTES % (AUTO) 8.6 (0-10); NEUTROPHILS # (AUTO) 18.6 K/ul (2.0-6.9); NEUTROPHILS % (AUTO) 83.8 % (42.2-75.2); PLATELET COUNT 207 10^3/uL (140-440); RDW COEFFICIENT OF VARIATION 13.2 % (11.6-14.8); RED BLOOD COUNT 4.89 10^6/ul (4.70-6.10); WHITE BLOOD COUNT 22.22 K/ul (4.2-10.2)
[2023-02-01 05:13] LABS: ALANINE AMINOTRANSFERASE 118.3 U/L (0-50); ALBUMIN 3.49 g/dL (3.5-5.0); ALKALINE PHOSPHATASE 64.7 U/L (38-126); ASPARTATE AMINO TRANSFERASE 90.3 U/L (17-59); BILIRUBIN,TOTAL 1.9 mg/dL (0.2-1.3); BLOOD UREA NITROGEN 12.6 mg/dL (9-20); CALCIUM 8.5 mg/dL (8.4-10.2); CARBON DIOXIDE 32.7 mmol/L (22-30.0); CHLORIDE 92.1 mmol/L (98-107); CREATININE 1.13 mg/dL (0.60-1.10); GLUCOSE 86.4 mg/dL (74-106); LIPASE 1149.2 U/L (23-300); POTASSIUM 4.29 mmol/L (3.5-5.1); SODIUM 130.8 mmol/L (134.5-145); TOTAL PROTEIN 6.34 g/dL (6.3-8.2)
[2023-02-01] MEDS: LEVAQUIN 750 MG/150 ML D5W 750 MG/150 ML BAG IV SCH (08:51)
[2023-02-01] MEDS: LOVENOX SUBCUT SCH (08:55)
[2023-02-01] MEDS: WELLBUTRIN XL PO SCH ×2 (08:56→20:27)
--- NOTE | 2023-02-01 09:29 | PCM.PROG ---
Date/Time Seen Date Seen by Provider: 02/01/23 Time Seen by Provider: 09:00 Provider Provider: [facility] Chief Complaint Chief Complaint: ACUTE PROSTATITIS Subjective Subjective: Patient is feeling mildly better today. Was able to go 5 hours without pain medication. He states he had issues with urinating last night, nursing tried to place a catheter but were unable to. He has since had much relief and has urinated multiple times per patient. No nausea or vomiting. Labs improving. Objective Appearance: Positive Well-appearing, Well-nourished and Alert and Oriented x3 Chest/Lungs: Positive Symmetrical With Equal Breath Sounds and Clear to Auscultation Bilaterally Heart: Positive RRR GI/: Positive Soft, Nontender, Bowel Sounds Normal and No Distention Musculoskeletal: Positive Normal Gait and Station Neurological: Positive Cranial Nerves Intact, Alert and Muscle Strength 5/5 in Upper and Lower Extremities Bilaterally Vital Signs Vital Signs: Vital Signs: Last 24 Hours 01/31/23 10:00 01/31/23 13:00 01/31/23 14:00 Temperature 97.6 F 97.9 F Temperature Source Oral Oral Pulse Rate 92 97 Respiratory Rate 18 20 Blood Pressure 169/96 H 167/100 H Blood Pressure Mean 120 122 Blood Pressure Location Right Arm Right Arm Blood Pressure Position Supine O2 Sat by Pulse Oximetry 98 96 Oxygen Delivery Method Room Air Room Air Telemetry Type Remote Telemetry Telemetry Monitoring Continues Telemetry Heart Rate 90 EKG AK Interval 0.13 EKG QRS Interval 0.06 Telemetry Strip Reading SR 01/31/23 18:00 01/31/23 20:00 01/31/23 19:00 Temperature 97.9 F Temperature Source Temporal Artery Scan Pulse Rate 88 Respiratory Rate 18 Blood Pressure 165/95 H Blood Pressure Mean 118 Blood Pressure Location Right Arm Blood Pressure Position Supine O2 Sat by Pulse Oximetry 98 Oxygen Delivery Method Room Air Room Air Telemetry Type Remote Telemetry Telemetry Monitoring Continues Telemetry Heart Rate 108 H EKG AK Interval 0.16 EKG QRS Interval 0.[address] 01/31/23 22:00 02/01/23 01:00 02/01/23 02:00 Temperature 97.6 F Temperature Source Oral Pulse Rate 88 83 Respiratory Rate 19 18 Blood Pressure 148/62 H 132/64 Blood Pressure Mean 90 86 Blood Pressure Location Right Arm Right Arm Blood Pressure Position Supine Supine O2 Sat by Pulse Oximetry 98 Oxygen Delivery Method Room Air Room Air Telemetry Type Remote Telemetry Telemetry Monitoring Continues Telemetry Heart Rate 93 EKG AK Interval 0.18 EKG QRS Interval 0.08 Telemetry Strip Reading SR 02/01/23 05:58 02/01/23 07:00 Temperature 98.0 F Temperature Source Oral Pulse Rate 88 Respiratory Rate 19 Blood Pressure 122/63 Blood Pressure Mean 82 Blood Pressure Location Right Arm Blood Pressure Position Supine O2 Sat by Pulse Oximetry 96 Oxygen Delivery Method Room Air Telemetry Type Remote Telemetry Telemetry Monitoring Continues Telemetry Heart Rate 93 EKG AK Interval 0.15 EKG QRS Interval 0.06 Telemetry Strip Reading SR Lab Results Lab Results: Lab Results: Last 24 Hours 02/01/23 04:47 WBC 22.22 H RBC 4.89 Hgb 15.0 Hct 45.0 MCV 92.0 MCH 30.7 MCHC 33.3 RDW Coeff of Meli 13.2 Plt Count 207 Immature Gran % (Auto) 0.5 Neut % (Auto) 83.8 H Lymph % (Auto) 6.5 L [place] % (Auto) 8.6 Eos % (Auto) 0.3 Baso % (Auto) 0.3 Neut # (Auto) 18.6 H Lymph # (Auto) 1.5 [place] # (Auto) 1.9 Eos # (Auto) 0.1 Baso # (Auto) 0.1 Immature Gran # (Auto) 0.1 Sodium 130.8 L Potassium 4.29 Chloride 92.1 L Carbon Dioxide 32.7 H Anion Gap 10.29 BUN 12.6 Creatinine 1.13 H Estimated GFR (MDRD) 72.00 BUN/Creatinine Ratio 11.15 Glucose 86.4 Calcium 8.50 Total Bilirubin 1.90 H D AST 90.3 H D ALT 118.3 H Alkaline Phosphatase 64.7 Total Protein 6.34 Albumin 3.49 L Globulin 2.85 Albumin/Globulin Ratio 1.22 Lipase 1149.2 H Additional Comments Additional Comments: I have independently reviewed and interpreted the labs/EKGs/imaging ordered during this hospital stay. I have reviewed outside records that are available in our EMR that pertain to medical stay including imaging/notes/labs from previous visits. Active Medications Active Medications: Medications Generic Name Dose Route Start Last Admin Trade Name Freq PRN Reason Stop Dose Admin Acetaminophen 650 mg 01/30/23 20:54 Acetaminophen 325 Mg Tablet PO Q6HR PRN fever Atorvastatin Calcium 20 mg 01/30/23 21:00 01/31/23 20:50 Atorvastatin Calcium 20 Mg Tablet PO Not Given BEDTIME [facility] Bupropion HCl 150 mg 01/31/23 21:00 02/01/23 08:56 Bupropion Hcl 150 Mg Tab.Er.24h PO Not Given BID RAH Duloxetine HCl 60 mg 01/31/23 21:00 01/31/23 20:51 Duloxetine Hcl 30 Mg Capsule.Dr PO Not Given BEDTIME [facility] Enoxaparin Sodium 40 mg 01/31/23 12:30 02/01/23 08:55 Enoxaparin Sodium 40 Mg/0.4 Ml Syr SUBCUT Not Given DAILY [facility] Hydromorphone HCl 1 mg 01/31/23 05:38 02/01/23 07:11 Hydromorphone Hcl 1 Mg/Ml Syringe IVP 1 mg Q4HR PRN Administration Severe Pain Levofloxacin/Dextrose 750 mg in 150 mls @ 100 mls/hr 01/31/23 09:00 02/01/23 08:51 Levaquin 750 Mg/150 Ml D5w IV 02/03/23 08:59 100 mls/hr DAILY RAH Administration Lactated Ringer's 1,000 mls @ 250 mls/hr 01/30/23 21:00 02/01/23 06:13 Lactated Ringers IV 250 mls/hr .Q4H RAH Administration Lisinopril 20 mg 01/31/23 21:00 01/31/23 20:19 Lisinopril 10 Mg Tablet PO 20 mg BEDTIME RA[facility] Administration Morphine Sulfate 2 mg 01/30/23 20:54 01/31/23 05:22 Morphine Sulfate 2 Mg/Ml Syringe IVP 2 mg Q4HR PRN Administration Abdominal Pain Non-Formulary Medication 10 mg 01/30/23 21:00 01/31/23 20:52 Lemborexant [Dayvigo] PO Not Given BEDTIME [facility] Ondansetron HCl 4 mg 01/30/23 20:54 01/31/23 17:57 Ondansetron Hcl/Pf 4 Mg/2 Ml Sdv IVP 4 mg Q6HR PRN Administration Nausea / Vomiting Oxcarbazepine 150 mg 01/31/23 21:00 01/31/23 20:49 Oxcarbazepine 150 Mg Tablet PO Not Given BEDTIME [facility] Sodium Chloride 1 syr 01/30/23 16:10 0.9% Sodium Chloride 10 Ml Disp.Syrin IVF PRN PRN To flush IV Tamsulosin HCl 0.4 mg 01/31/23 21:00 01/31/23 20:19 Tamsulosin Hcl 0.4 Mg Cap.Er.24h PO 0.4 mg BEDTIME [facility]H Administration Tizanidine HCl 4 mg 01/30/23 21:30 01/31/23 20:19 Tizanidine Hcl 4 Mg Tablet PO 4 mg BEDTIME RAH Administration Plan Plan: A&P: 1. Acute pancreatitis due to unknown etiology - Improving. RUQ US negative. CT a/p w/ contrast negative. Lipase improved today. Liver enzymes imrpoved. Repeat tomorrow AM. NPO, may progress to clear liquids today if pain is improved. Continue LR at 250 ml/hr. Will need outpatient GI follow up due to recurrent pancreatitis. 2. Acute prostatitis, bacterial - Improving. Patient experiencing urinary retention, frequency, urgency. UA negative. WBC improved. Continue levaquin. Will need outpatient urology follow up. If patient experiences retention again requiring cathing, will insert sarkar catheter to avoid further irritation of prostate. 3. Elevated liver enzymes with conjugated hyperbilirubinemia in setting of acute pancreatitis - Improving. Patient is post cholecystectomy. US RUQ negative. Continue hydration and recheck in AM. 4. Hypertension - Continue home medications 5. Anxiety/depression - Patient takes trileptal which has pancreatitis as a side effect, however he states he's been on it "forever." Also cymbalta could contribute to urinary retention but he states urinary issues began prior to starting cymbalta. DVT Prophylaxis: Lovenox Discussed Plan of Care with Dr. Cristopher Velasquez. Review Statement Review Statement: I have personally discussed and reviewed the patient's visit/currently labs/imaging/decision making with Dr. Velasquez, my supervising attending. Greater that 50 minutes spent with patient, 50% of the time spent with this patient was devoted to counseling and coordination of care.
[2023-02-01] MEDS ORDERED: DILAUDID 1 MG/ML SYRINGE IVP PRN (11:10)
[2023-02-01] MEDS: DILAUDID 0.5 MG/0.5 ML SYRINGE IVP PRN ×2 (11:29→19:20)
[2023-02-01] MEDS: MORPHINE 2 MG/ML SYRINGE IVP PRN (16:51)
[2023-02-01] MEDS: ZANAFLEX PO SCH (20:27)
[2023-02-01] MEDS: LIPITOR PO SCH (20:27)
[2023-02-01] MEDS: TRILEPTAL PO SCH (20:27)
[2023-02-01] MEDS: ZESTRIL PO SCH (20:27)
[2023-02-01] MEDS: FLOMAX PO SCH (20:27)
[2023-02-01] MEDS: CYMBALTA PO SCH (20:28)
[2023-02-01] MEDS: LEMBOREXANT 10 MG PO SCH (20:28)
[2023-02-02] MEDS: LACTATED RINGERS 1,000 ML IV SCH ×3 (03:36→08:25)
[2023-02-02 04:56] LABS: BASOPHILS # (AUTO) 0.1 K/uL (0-0.2); BASOPHILS % (AUTO) 0.4 % (0.0-3.0); EOSINOPHILS # (AUTO) 0.2 K/ul (0.0-0.7); EOSINOPHILS % (AUTO) 1.1 % (0.0-7.0); HEMATOCRIT 40.2 % (42.0-52.0); HEMOGLOBIN 13.7 g/dl (14.0-18.0); IMMATURE GRANULOCYTE # (AUTO) 0.1 (0.0-1.0); IMMATURE GRANULOCYTE % (AUTO) 0.7 % (0.0-5.0); LYMPHOCYTES # (AUTO) 1.7 K/uL (0.60-3.4); MEAN CORPUSCULAR HEMOGLOBIN 30.9 pg (27.0-31.0); MEAN CORPUSCULAR HGB CONC 34.1 (31.8-35.4); MEAN CORPUSCULAR VOLUME 90.5 fl (80.0-94.0); MONOCYTES # (AUTO) 1.4 K/uL (0.4-2.0); MONOCYTES % (AUTO) 8.7 (0-10); NEUTROPHILS # (AUTO) 12.2 K/ul (2.0-6.9); NEUTROPHILS % (AUTO) 78.1 % (42.2-75.2); PLATELET COUNT 211 10^3/uL (140-440); RDW COEFFICIENT OF VARIATION 13.3 % (11.6-14.8); RED BLOOD COUNT 4.44 10^6/ul (4.70-6.10); WHITE BLOOD COUNT 15.68 K/ul (4.2-10.2)
[2023-02-02 05:09] LABS: ALANINE AMINOTRANSFERASE 133.3 U/L (0-50); ALBUMIN 3.2 g/dL (3.5-5.0); ALKALINE PHOSPHATASE 80.4 U/L (38-126); ASPARTATE AMINO TRANSFERASE 121.3 U/L (17-59); BILIRUBIN,TOTAL 1.12 mg/dL (0.2-1.3); BLOOD UREA NITROGEN 8.2 mg/dL (9-20); CALCIUM 8.6 mg/dL (8.4-10.2); CARBON DIOXIDE 34.2 mmol/L (22-30.0); CHLORIDE 96.8 mmol/L (98-107); CREATININE 1.06 mg/dL (0.60-1.10); GLUCOSE 84.8 mg/dL (74-106); POTASSIUM 4.11 mmol/L (3.5-5.1); SODIUM 133.2 mmol/L (134.5-145); TOTAL PROTEIN 6.04 g/dL (6.3-8.2)
[2023-02-02 05:17] VITALS: BP 147/83; TEMP 97.2
[2023-02-02] MEDS: LEVAQUIN 750 MG/150 ML D5W 750 MG/150 ML BAG IV SCH (08:27)
[2023-02-02] MEDS: WELLBUTRIN XL PO SCH (08:28)
[2023-02-02] MEDS: LOVENOX SUBCUT SCH (08:29)
--- NOTE | 2023-02-02 09:04 | DCSUM ---
Admission Date Admission Date: 01/30/23 Discharge Date Discharge Date: 02/02/23 Admission Diagnosis Admission Diagnosis: 1. Acute prostatitis Discharge Diagnosis Discharge Diagnosis: 1. Acute pancreatitis due to unknown etiology, resolving 2. Acute prostatitis, bacterial, improved 3. Elevated liver enzymes with conjugated hyperbilirubinemia in setting of acute pancreatitis, improved 5. Anxiety/depression, stable chronic Hospital Provider Hospital Provider: SHANNON KLEIN PA-C, [facility] [place] [facility] Primary Care Physician Primary Care Physician: LEE NOEL APRN Summary of History and Physical Summary of History and Physical: Patient is a 42 year old male with pmhx of pancreatitis, depression/anxiety, hyperlipidemia, hypertension who presents to ER for trouble urinating and abdominal pain/vomiting. He states the trouble urinating started a few weeks ago, prior to starting cymbalta. It started as slow stream, progressed to being unable to start or stop stream. He often feels like he needs to urinate but then can't, complains of a lot of pressure. Had an ER visit on 01/26 for urinary retention, required straight cath and was given an IM antibiotic, prescribed a steroid and pyridium. He felt the pyridium helped. His urine culture from that visit was negative. He followed up with PCP on 01/29 who referred him to urology and prescribed him levaquin for suspect prostatitis. Prostate exam on that date normal. Patient denies new medications other than the cymbalta, and he was also started on wellbutrin for sexual issues. He does admit to using testosterone, creatine and amino acids, but this is not new for him. The abdominal pain and vomiting started yesterday morning. He describes the pain as intense and "all over". He is unsure of if it is similar to pancreatitis in the past. Lipase >1000 in ER. Fluids and pain medication given. He states he had pancreatitis in 06/08 and then two more times at other hospitals until ultimately his gallbladder was taken out. He was told that was the cause. He denies alcohol use. CT abd/pelvis in ER was negative. WBC 31. Trigs normal in 01/07. Today during evaluation patient states the dilaudid provided him relief finally. He felt like taking a shower. He still does not feel like eating or drinking. He is still having urinary frequency, urgency, and suprapubic pressure. However he is able to void. Hospital Course Subjective: Patient's lipase was elevated. He was started on levaquin daily, LR fluids at 250 ml/hr, and made NPO. RUQ US negative. CT abd/pelvis w/ negative. His bilirubin and lipase initially worsened, then by day of discharge bili was normal and lipase improved to 500s. He was initially requiring dilaudid for pain control but was weaned to morphine and on day of discharge has not had any pain medication in over 12 hours. He is tolerating a diet well also. His urinary symp toms are much improved, no issues with retention in last 24 hours. His UA was negative. WBC count improved. Will continue levaquin on discharge. Discussed his cymbalta having a side effect of urinary retention. He states his urinary issues started prior to starting cymbalta, however he declined taking it during his stay. His pcp has initiated a urology referral which he said his apt is Sunday next week. We initiated a GI referral for recurrent pancreatitis at [facility] and they will call with apt. Appearance: Pleasant, No Apparent Distress and Alert HEENT: MMM CVS: No Murmur, No Rubs and No Gallop Abdomen: Soft, Non-Tender and No Distention Respiratory: No Dyspnea Extremities: No Edema Vital Signs: Most Recent Vital Signs Temperature 97.2 F L 02/02/23 05:14 Temperature Source Temporal Artery Scan 02/02/23 05:14 Temperature Source Infrared 01/30/23 15:43 Pulse Rate 83 02/02/23 05:14 Respiratory Rate 18 02/02/23 05:14 Blood Pressure 147/83 H 02/02/23 05:14 Blood Pressure Mean 104 02/02/23 05:14 Blood Pressure Left Arm 170/100 01/30/23 20:39 Blood Pressure Location Right Arm 02/02/23 05:14 Blood Pressure Position Supine 02/02/23 05:14 O2 Sat by Pulse Oximetry 98 02/02/23 05:14 Oxygen Delivery Method Room Air 02/02/23 05:14 Height 5 ft 10 in 01/30/23 20:39 Weight 219 lb 01/30/23 20:39 Telemetry Type Remote Telemetry 02/02/23 07:00 Telemetry Monitoring Continues 02/02/23 07:00 Telemetry Heart Rate 88 02/02/23 07:00 EKG AR Interval 0.17 02/02/23 07:00 EKG QRS Interval 0.08 02/02/23 07:00 Telemetry Strip Reading NSR 02/02/23 07:00 Imaging: EXAM: CT ABDOMEN/PELVIS WITH CONTRAST HISTORY: Lower abdominal pain COMPARISON: CT abdomen/pelvis from 06/11/2022 TECHNIQUE: Multi-slice postcontrast transaxial helical images are acquired through the abdomen and pelvis with coronal and sagittal reconstructed images. All CT scans are performed using dose optimization techniques as appropriate to the performed exam and includes at least one of the following: Automated exposure control, adjustment of the mA and/or kV according to size, and the use of iterative reconstruction technique. CONTRAST: 75 mL Omnipaque-350 IV FINDINGS: Lung bases: The lung bases are clear. Liver: Normal. Gallbladder/bilary tree: The gallbladder is surgically absent and there is no biliary dilatation. Pancreas: Normal. Adrenal glands: Normal. Spleen: Normal. Kidneys: Normal. Retroperitoneum: Normal. Peritoneum: Normal. Bowel: The intestines have normal caliber without evidence of obstruction or acute inflammation. The appendix is normal. Pelvis: Normal. Addominal wall/bones: A unilateral left pars defect is noted at L5. No associated spondylolisthesis. No suspicious bone lesions or acute osseous abnormalities. No significant body wall hernias. IMPRESSION: - No CT explanation for the patient's symptoms. Lab Results Last 24 Hours: 02/02/23 04:46 WBC 15.68 H D RBC 4.44 L Hgb 13.7 L Hct 40.2 L MCV 90.5 MCH 30.9 MCHC 34.1 RDW Coeff of Meli 13.3 Plt Count 211 Immature Gran % (Auto) 0.7 Neut % (Auto) 78.1 H Lymph % (Auto) 11.0 [place] % (Auto) 8.7 Eos % (Auto) 1.1 Baso % (Auto) 0.4 Neut # (Auto) 12.2 H Lymph # (Auto) 1.7 [place] # (Auto) 1.4 Eos # (Auto) 0.2 Baso # (Auto) 0.1 Immature Gran # (Auto) 0.1 Sodium 133.2 L Potassium 4.11 Chloride 96.8 L Carbon Dioxide 34.2 H Anion Gap 6.31 BUN 8.2 L Creatinine 1.06 Estimated GFR (MDRD) 77.00 BUN/Creatinine Ratio 7.73 Glucose 84.8 Calcium 8.60 Total Bilirubin 1.12 AST 121.3 H D ALT 133.3 H Alkaline Phosphatase 80.4 Total Protein 6.04 L Albumin 3.20 L Globulin 2.84 Albumin/Globulin Ratio 1.12 Lipase 517.0 H Discharge Instructions Discharge Planning: DX: ACUTE PROSTATITIS AND ACUTE PANCREATITIS DIET: PROGRESS TOLERATED ACTIVITY: AVOID HEAVY LIFTING UNTIL BACK TO NORMAL F/U WITH GI AND UROLOGY PRESCRIPTIONS: LEVAQUIN YOU HAVE AN APPOINTMENT WITH LEE NOEL NP, ON January AT 10:45. SHOULD YOU HAVE ANY QUESTIONS OR NEED TO RESCHEDULE YOU CAN CONTACT THEIR OFFICE AT [phone]. YOU HAVE BEEN REFERRED TO [facility] FOR RECURRING PANCREATITIS. THEY WILL BE IN CONTACT WITH YOU TO SET AN APPOINTMENT. SHOULD YOU HAVE ANY QUESTIONS OR NEED TO CONTACT THEM, THEIR PHONE NUMBER IS [phone]. Discharge Planning > 80 minutes Medications Given This Visit: Medications Generic Name Dose Route Start Last Admin Trade Name Freq PRN Reason Stop Dose Admin Acetaminophen 650 mg 01/30/23 20:54 Acetaminophen 325 Mg Tablet PO Q6HR PRN fever Atorvastatin Calcium 20 mg 01/30/23 21:00 02/01/23 20:27 Atorvastatin Calcium 20 Mg Tablet PO 20 mg BEDTIME RAH Administration Bupropion HCl 150 mg 01/31/23 21:00 02/02/23 08:28 Bupropion Hcl 150 Mg Tab.Er.24h PO 150 mg BID RAH Administration Duloxetine HCl 60 mg 01/31/23 21:00 02/01/23 20:28 Duloxetine Hcl 30 Mg Capsule.Dr PO Not Given BEDTIME RAH Enoxaparin Sodium 40 mg 01/31/23 12:30 02/02/23 08:29 Enoxaparin Sodium 40 Mg/0.4 Ml Syr SUBCUT 40 mg DAILY RAH Administration Hydromorphone HCl 0.5 mg 02/01/23 11:17 02/01/23 19:20 Hydromorphone 0.5 Mg/0.5 Ml Syringe IVP 0.5 mg Q4HR PRN Administration Severe Pain Levofloxacin/Dextrose 750 mg in 150 mls @ 100 mls/hr 01/31/23 09:00 02/02/23 08:27 Levaquin 750 Mg/150 Ml D5w IV 02/03/23 08:59 100 mls/hr DAILY RAH Administration Lactated Ringer's 1,000 mls @ 250 mls/hr 01/30/23 21:00 02/02/23 08:25 Lactated Ringers IV 250 mls/hr .Q4H RAH Administration Lisinopril 20 mg 01/31/23 21:00 02/01/23 20:27 Lisinopril 10 Mg Tablet PO 20 mg BEDTIME RAH Administration Morphine Sulfate 2 mg 01/30/23 20:54 02/01/23 16:51 Morphine Sulfate 2 Mg/Ml Syringe IVP 2 mg Q4HR PRN Administration Abdominal Pain Non-Formulary Medication 10 mg 01/30/23 21:00 02/01/23 20:28 Lemborexant [Dayvigo] PO Not Given BEDTIME RA[facility] Ondansetron HCl 4 mg 01/30/23 20:54 01/31/23 17:57 Ondansetron Hcl/Pf 4 Mg/2 Ml Sdv IVP 4 mg Q6HR PRN Administration Nausea / Vomiting Oxcarbazepine 150 mg 01/31/23 21:00 02/01/23 20:27 Oxcarbazepine 150 Mg Tablet PO 150 mg BEDTIME RAH Administration Sodium Chloride 1 syr 01/30/23 16:10 0.9% Sodium Chloride 10 Ml Disp.Syrin IVF PRN PRN To flush IV Tamsulosin HCl 0.4 mg 01/31/23 21:00 02/01/23 20:27 Tamsulosin Hcl 0.4 Mg Cap.Er.24h PO 0.4 mg BEDTIME RAH Administration Tizanidine HCl 4 mg 01/30/23 21:30 02/01/23 20:27 Tizanidine Hcl 4 Mg Tablet PO 4 mg BEDTIME RAH Administration Medications Given This Visit: Medications at Discharge (Home Meds & RX) clonidine HCl 0.1 mg tablet 0.1 mg PO Q4H PRN Hypertension 06/09/22 lisinopril 10 mg tablet 20 mg PO BEDTIME 06/09/22 tizanidine 4 mg tablet (Zanaflex) 4 mg PO BEDTIME 06/09/22 Dayvigo 10 mg tablet (lemborexant) 10 mg PO QHS 30 days #30 tabs 01/02/23 oxcarbazepine 150 mg tablet (Trileptal) 150 mg PO QDAY 30 days #30 tabs 01/11/23 bupropion HCl 150 mg tablet,12 hr sustained-release (Wellbutrin SR) 150 mg PO Q12H 30 days #60 ea 01/16/23 atorvastatin 20 mg tablet See Rx Instructions .Route .COMPLEX #90 tabs 01/29/23 duloxetine 60 mg capsule,delayed release (Cymbalta) 60 mg PO QDAY 01/29/23 levofloxacin 500 mg tablet 500 mg PO Q24H 14 days #14 tabs 01/29/23 tamsulosin 0.4 mg capsule See Rx Instructions .Route .COMPLEX #90 caps 01/29/23 Discharge Plan Discharge Discharge Orders: Discharge Patient (ONCE); Ordered 02/02/23 Ordered By: SHANNON KLEIN Activity Restrictions/Additional Instructions: DX: ACUTE PROSTATITIS AND ACUTE PANCREATITIS DIET: PROGRESS TOLERATED ACTIVITY: AVOID HEAVY LIFTING UNTIL BACK TO NORMAL F/U WITH GI AND UROLOGY PRESCRIPTIONS: TIFFANI, oyster picker script at pharmacy sent by pcp. YOU HAVE AN APPOINTMENT WITH LEE NOEL NP, ON January AT 10:45. SHOULD YOU HAVE ANY QUESTIONS OR NEED TO RESCHEDULE YOU CAN CONTACT THEIR OFFICE AT [phone]. YOU HAVE BEEN REFERRED TO [facility] FOR RECURRING PANCREATITIS. THEY WILL BE IN CONTACT WITH YOU TO SET AN APPOINTMENT. SHOULD YOU HAVE ANY QUESTIONS OR NEED TO CONTACT THEM, THEIR PHONE NUMBER IS [phone]. Instructions: Pancreatitis (GEN) Patient Disposition: HOME SELF-CARE Prescriptions: Continued Dayvigo 10 mg tablet 10 mg PO QHS 30 Days Qty: 30 0RF oxcarbazepine [Trileptal] 150 mg tablet 150 mg PO QDAY 30 Days Qty: 30 2RF tamsulosin 0.4 mg capsule See Rx Instructions .ROUTE .COMPLEX Qty: 90 0RF Dose Instruction: TAKE 1 CAPSULE BY MOUTH DAILY Rx Instructions: TAKE 1 CAPSULE BY MOUTH DAILY atorvastatin 20 mg tablet See Rx Instructions .ROUTE .COMPLEX Qty: 90 0RF Dose Instruction: TAKE 1 TABLET BY MOUTH AT BEDTIME Rx Instructions: TAKE 1 TABLET BY MOUTH AT BEDTIME lisinopril 10 mg tablet 20 mg PO BEDTIME clonidine HCl 0.1 mg Tablet 0.1 mg PO Q4H PRN (Reason: Hypertension) tizanidine [Zanaflex] 4 mg Tablet 4 mg PO BEDTIME bupropion HCl [Wellbutrin SR] 150 mg tablet sustained-release 12 hr 150 mg PO Q12H 30 Days Qty: 60 0RF levofloxacin 500 mg tablet 500 mg PO Q24H 14 Days Qty: 14 0RF Discontinued duloxetine [Cymbalta] 60 mg capsule,delayed release(DR/EC) 60 mg PO QDAY Did you review [place] EX[employer]VATING MACHINE [employer]ATOR for ALL controlled substances?: Not Applicable Discussed opioids are addictive and Narcan is available by prescription or from pharmacy.: No Condition: Stable
[2023-02-02 09:36] VITALS: RESP 16
== END 2023-02-02 11:20 | disposition home or self-care (01) ==
LOC: ED 15:38 → MEDSURG A 15:38
PROVIDERS: ADMIT Hospitalist; ATTEND Physician Assistant
DX: N41.0 Acute prostatitis; Z51.81 Encounter for therapeutic drug level monitoring; I10 Essential (primary) hypertension; Z79.899 Other long term (current) drug therapy; Z90.49 Acquired absence of other specified parts of digestive tract; F41.1 Generalized anxiety disorder; K85.90 Acute pancreatitis without necrosis or infection, unspecified; D72.829 Elevated white blood cell count, unspecified; Z20.822 Contact with and (suspected) exposure to COVID-19; F43.10 Post-traumatic stress disorder, unspecified; F32.A Depression, unspecified; R74.01 Elevation of levels of liver transaminase levels; E78.5 Hyperlipidemia, unspecified